=== PATIENT | female | born 1945 | race Caucasian/White ===

== ENCOUNTER 2023-09-03 15:15 | Inpatient (IN) | payer MEDICARE, SELFPAY ==
[2023-09-03 11:28] VITALS: BP 164/98
[2023-09-03 12:03] VITALS: BMI 30.8
[2023-09-03 12:16] LABS: % Basophils 0.3 % (0-2); % Eosinophils 0.4 % (0-6); % Immature Granulocytes 0.3 % (0-0.5); % Lymphocytes 7.2 % (20.5-51.1); % Monocytes 4.8 % (1.7-9.3); Absolute Lymphocytes 0.7 10^3/uL (1.2-3.4); Absolute Monocytes 0.5 10^3/uL (0.1-0.6); Absolute Neutrophils 8.7 10^3/uL (1.4-6.5); Hematocrit 38.5 % (37.0-47.0); Hemoglobin 12.8 g/dL (12.0-16.0); Mean Corp Hgb Conc. 33.2 g/dL (33.0-37.0); Mean Corpuscular Hgb 30.6 pg (27.0-31.0); Mean Corpuscular Volume 92.1 fL (81.0-99.0); Mean Platelet Volume 11.2 fL (7.4-10.4); Nucleated Red Blood Cells % 0 %; Platelet Count 272 10^3/uL (130-400); Red Blood Cell Count 4.18 10^6/uL (4.20-5.40); Red Cell Dist. Width 13.2 % (11.5-14.5)
[2023-09-03 12:29] LABS: ALT (SGPT) 36 U/L (0-35); AST (SGOT) 37 U/L (14-36); Alkaline Phosphatase 91 U/L (38-126); Blood Urea Nitrogen 17 mg/dl (7-17); Calcium 9.2 mg/dl (8.4-10.2); Carbon Dioxide 26 mmol/L (22-30); Chloride 107 mmol/L (98-107); Estimated Creatinine Clearance 69 ml/min; Glucose 95 mg/dl (70-99); Potassium 4.5 mmol/L (3.5-5.1); Sodium 137 mmol/L (135-145); Total Bilirubin 0.7 mg/dl (0.2-1.3); Total Protein 6.8 g/dl (6.3-8.2); eGFR > 60.00
--- NOTE | 2023-09-03 12:38 | ED.GENMED ---
History of Present Illness
General
Chief Complaint: Breathing Problem
Source: patient
Exam Limitations: none
Time Seen by Provider: 09/03/23 11:46
Nursing documentation reviewed up to this point in time: agreed with
Travel History
Have you had any contact with someone who has COVID-19?: No
Do you have any symptoms of coronavirus? Fever > 100 degrees, chills, cough, shortness of breath, sore throat, loss of taste or smell, muscle aches, or headache?: No
History of Present Illness
History of Present Illness:
77-year-old female long-term smoker quit 2 days ago cough congestion shortness of breath for a week worsened recently 84% on room air placed on 3 L no history of diabetes or hypertension here she is audibly wheezing smells of smoke, tachypneic
Past History
Past History
ED Past Medical History: COPD (Never formally diagnosed)
Social History
Tobacco: Former smoker (Quit 2 days ago 30 cigarettes a day for 65 years)
Drug: None
Living: with family
Employment: Retired
Review of Systems
Review of Systems
All Other Systems: Not applicable
Constitutional: Denies fever or fatigue
Respiratory: Reports cough and trouble breathing
Musculoskeletal: Reports no symptoms
Neurological: Reports no symptoms
Endocrine: Reports no symptoms
Phy Exam
Physical Exam
Physical Exam:
Physical Exam
General: Tachypneic audibly wheezing smells of cigarette smoke
Neck: No jaundice
Heart: Tachycardic
Lungs: Wheeze and rhonchi
Abdomen: Nontender
Neuro: alert and oriented. no focal neurological deficits
Skin: no rash
Psychiatric: cooperative
Extremities: no edema.
Scores
Heart Failure Risk
Heart Failure Risk Score: Not Applicable
Course
Orders/Labs/Results
Orders:
Orders
09/03/23 11:35
Electrocardiogram (*1) Urgent
Reason for Study: Shortness of Breath
EKG- Treatment ONCE
09/03/23 12:07
Complete Blood Count/With Diff Urgent
Comprehensive Metabolic Panel Urgent
NT-proBNP Urgent
Troponin I Urgent
09/03/23 12:34
IV Insert/Care/Rem.- Treatment PRN
Arterial Blood Gas Urgent
%Oxygen/Room Air: 4
Albuterol Sulfate [Ventolin Nebules] 7.5 mg INH R NOW STA
Dexamethasone Sod Phosphate [Decadron] 20 mg IV NOW STA
CR Chest Portable - 1 View Urgent
Comment:
Reason For Exam: copd
Reason Study Needs to be Portable: Patient Unstable
09/03/23 12:42
ABG [Arterial Blood Gas] Urgent
%Oxygen/Room Air: 3
COVID-19 Antigen Urgent
Source: Nasal Swab
Influenza A+B Rapid Molecular Urgent
ABDELRAHMAN Source: Nasal Swab
Specimen Description:
Abnormal Lab Results
09/03/23
12:07
RBC 4.18 L 10^6/uL
(4.20-5.40)
MPV 11.2 H fL
(7.4-10.4)
Absolute Neuts (auto) 8.7 H 10^3/uL
(1.4-6.5)
Absolute Lymphs (auto) 0.7 L 10^3/uL
(1.2-3.4)
Neutrophils % 87.0 H %
(42.2-75.2)
Lymphocytes % 7.2 L %
(20.5-51.1)
AST 37 H U/L
(14-36)
ALT 36 H U/L
(0-35)
09/03/23 12:07
09/03/23 12:07
Vital Signs
Initial and Last Documented VS:
Initial Vital Signs
Temp Pulse Resp BP Pulse Ox
97.8 F 102 26 164/98 95
09/03/23 11:28 09/03/23 11:28 09/03/23 11:28 09/03/23 11:28 09/03/23 11:28
Last Documented Vital Signs
Temp Pulse Resp BP Pulse Ox
97.8 F 78 20 164/98 95
09/03/23 11:28 09/03/23 12:15 09/03/23 12:15 09/03/23 11:28 09/03/23 12:15
MDM/Problems Addressed
Differential Diagnosis Includes:
COPD pneumonia asthma bronchitis doubt PE
MDM/Problems Addressed:
Shortness of breath
Chronic conditions affecting care:
Smoker
Chronic conditions affecting care: COPD
Acute Exacerbation and/or Progression of Chronic Illness:
Smoker
Acute Exacerbation and/or Progression of Chronic Illness: COPD
*Radiology
Radiology exam reviewed: preliminary read by ED provider
*Pulse Oximetry
Patient hypoxic: yes
*EKG
Interpreted by ED Provider?: Yes
Interpretation: abnormal
Comparison EKG: no comparison EKG present
Heart Rate: 118
Rate: tachycardiac
Rhythm: sinus
Ischemia: non-specific ST changes
*[employer] Interpretation
Rate: tachycardiac
Interpretation: abnormal
Heart Rate: 118
*Critical Care Note
Total Time (30-74mins, 75-104mins- exclusive of procedures): 30
Data Reviewed
Source: patient
Update Note
Update Note:
Patient with likely COPD by history and physical plan will be nebs steroids chest x-ray viral swabs patient requiring oxygen, will likely require admission will also check ABG
ED Attending Note
-
Portions of this chart may have been created with voice recognition software.� Occasional wrong word or��sound alike� substitutions may have occurred due to the inherent limitations of voice recognition software.
Discharge Plan
Departure
Patient Disposition: Admit
Date of Disposition: 09/03/23
Time of Disposition: 13:00
Admit to: Med/Surg
Presentation/result/management discussed w/ accepting MD/DO: Hospitalist
Patient with high blood pressure during this ER visit?: No
Condition: Fair
Covid-19: Not Applicable
Discharge Problem:
COPD exacerbation
Interventions
Interventions:
*Risk Screen - Suicide Last Done: 09/03/23 12:28
*General Assessment Last Done: 09/03/23 12:28
*Neglect/Abuse Screening Last Done: 09/03/23 12:28
*ED COVID-19 Vaccine History Last Done: 09/03/23 12:28
ED- Cardiac Assessment Last Done: 09/03/23 12:28
ED- Pulmonary Assessment Last Done: 09/03/23 12:28
[2023-09-03 12:41] LABS: NT-proBNP 4080 pg/ml; Troponin I 0.018 ng/ml
[2023-09-03] MEDS: VENTOLIN NEBULES 7.5 MG INH (12:50)
[2023-09-03] MEDS: DECADRON 20 MG IV (12:50)
[2023-09-03 13:15] LABS: B.E. 1.8 mmol/L; HCO3 27.2 mmol/L (21-28); O2 Saturation % 94.3 % (94-98); PCO2 45 mmHg (32-35); PO2 65 mmHg (83-108); pH 7.39 (7.35-7.45)
[2023-09-03 13:32] LABS: COVID-19 Antigen Negative (Negative)
[2023-09-03 14:02] VITALS: BP 170/69
[2023-09-03] MEDS: ROCEPHIN 1000 MG IV (14:21)
--- NOTE | 2023-09-03 14:29 | HPS.HSE ---
Family Physician
-
Family Physician: Justyn Lin
Chief Complaint
-
Shortness of breath
History of Present Illness
Patient is 77 years old female with history of COPD, asthma, current smoker, vitamin D deficiency, vitamin B12 deficiency, hypertension not on any medications, presented to the hospital with cough and shortness of breath. Patient has been having
dry cough for the last 1 week associated with shortness of breath and wheezing that has been progressively getting worse. Denies fevers or chills. Denies nausea vomiting or diarrhea. Denies sick contacts. She does not use oxygen at home. She
was found to have tachypnea and increased work of breathing along with 84% on room air and she was placed on 3 L of supplemental oxygen. She had been hypertensive in the past and she had been taken off medications due to increased cough. In the ER
chest x-ray showed bibasilar opacities pneumonia versus atelectasis and tiny bilateral pleural effusions. She was referred to hospitalist for further evaluation.
Medical History
Past Medical History
Past Medical History: Reports Other (history of COPD, asthma, current smoker, vitamin D deficiency, vitamin B12 deficiency, hypertension not on any medications)
Past Surgical History: Reports None
Social History
Tobacco: Smoker
Alcohol: None
Drug: None
Family History
Family History: Not pertinent
Allergies / Home Medications
Allergies reflects when Allergies were last updated in [facility].
Home Medications with original date entered in [facility]
Allergy/Medication List:
Allergies
Allergy/AdvReac Type Severity Reaction Status Date / Time
No Known Allergies Allergy Unverified 09/03/23 11:27
Home Medications
Ex-Lax 2 tab PO DAILYPRN PRN constipation 09/03/23
Saffron Supplement 1 tab PO DAILY 09/03/23
albuterol sulfate 90 mcg/actuation aerosol inhaler 1 puff inhalation R Q4HPRN PRN sob 09/03/23
aspirin-caffeine 500 mg-32.5 mg tablet 2 tab PO .MIDDLE OF NIGHT PRN mild pain 09/03/23
aspirin-caffeine 500 mg-32.5 mg tablet 2 tab PO BID 09/03/23
cholecalciferol (vitamin D3) 1 tab PO DAILY 09/03/23
cyanocobalamin (vitamin B-12) 1 tab PO DAILY 09/03/23
Review of Systems
-
A 12 point ROS was completed and negative except as noted: Yes
Physical Exam
Vital Signs
Vital Signs
Temp Pulse Resp BP Pulse Ox
97.8 F 83 22 164/98 94
09/03/23 11:28 09/03/23 13:30 09/03/23 13:30 09/03/23 11:28 09/03/23 13:30
Physical exam:
General: Acutely ill
HEENT: Normocephalic, Atraumatic and Moist Mucous Membranes
Respiratory: Decreased breath sounds bilateral. Bilateral wheezing. No crackles.
Cardiac: Regular Rhythm and S1/S2
GI: Soft, Nontender and Nondistended
Musculoskeletal: No Clubbing, No Cyanosis and No Edema
Neuro: Awake, Alert and Oriented
Psych: Calm
Physical Exam
General: Other
Laboratory Results
-
09/03/23 12:07
09/03/23 12:07
Laboratory Results
pH 7.39 (7.35-7.45) 09/03/23 13:02
pCO2 45 mmHg (32-35) H 09/03/23 13:02
pO2 65 mmHg (83-108) L 09/03/23 13:02
HCO3 27.2 mmol/L (21-28) 09/03/23 13:02
Total Bilirubin 0.7 mg/dl (0.2-1.3) 09/03/23 12:07
AST 37 U/L (14-36) H 09/03/23 12:07
ALT 36 U/L (0-35) H 09/03/23 12:07
Alkaline Phosphatase 91 U/L (38-126) 09/03/23 12:07
Troponin I 0.018 ng/ml 09/03/23 12:07
Impression/Plan
-
IMPRESSION:
Patient 77 years old female current smoker and past medical history of COPD came to the hospital cough and shortness of breath and found to be in acute COPD exacerbation. Possible pneumonia versus bronchitis.
Impression:
Acute COPD exacerbation
Acute hypoxic respiratory failure due to COPD
Pneumonia
Conditions prior to presentation:
COPD/asthma
Hypertension, not on any medications.
PLAN:
IV steroids, dexamethasone 4 mg every 6 hours
Bronchodilators, DuoNebs and budesonide
Oxygen supplementation
Antibiotics, IV Rocephin and oral azithromycin.
Monitor respiratory status closely
Will use IV hydralazine as needed. Discussed with patient if she needs multiple doses we might need to start her on oral antihypertensives.
PT eval
DVT prophylaxis with Lovenox 40 subcutaneous daily
CODE STATUS DNR, confirmed with patient
Will give further commendations based on clinical course
[2023-09-03 15:00] VITALS: BP 181/80
[2023-09-03] MEDS: APRESOLINE 5 MG IV (15:50)
[2023-09-03] MEDS: ZITHROMAX 500 MG PO (15:50)
--- NOTE | 2023-09-03 16:30 | PTCARENOTE ---
2/2- Patient transferred and oriented to unit without issue. AAOX3, on 2L O2, TREVIZO, Productive cough with white/yellow thin phlegm. Skin=warm/pink/dry/Intact. Patient denies any needs at this time.
[2023-09-03 17:34] VITALS: BP 175/91
[2023-09-03] MEDS: DUONEB INH (17:44)
[2023-09-03] MEDS: VITAMIN B-12 1000 MCG PO (18:29)
[2023-09-03] MEDS: VITAMIN D3 (cholecalciferol) 50 MCG PO (18:29)
[2023-09-03] MEDS: DECADRON 4 MG IV ×2 (18:30→23:26)
[2023-09-03 19:15] VITALS: BP 177/72
[2023-09-03] MEDS: PULMICORT 0.5 MG INH (19:58)
[2023-09-03] MEDS: DUONEB 3 ML INH (19:58)
[2023-09-03] MEDS: MUCINEX 600 MG PO (20:35)
[2023-09-03] MEDS: APRESOLINE 10 MG IV (20:36)
[2023-09-03] MEDS: FLUSH (NSS) 1 FLUSH IV ×2 (20:41→23:26)
[2023-09-03 23:00] VITALS: BP 112/81
[2023-09-03] MEDS: ULTRAM 50 MG PO (23:25)
[2023-09-04] MEDS: DECADRON 4 MG IV ×3 (06:01→18:38)
[2023-09-04] MEDS: FLUSH (NSS) 1 FLUSH IV (06:01)
[2023-09-04 07:25] LABS: % Basophils 0.1 % (0-2); % Immature Granulocytes 0.3 % (0-0.5); % Lymphocytes 9.3 % (20.5-51.1); % Monocytes 1.8 % (1.7-9.3); % Neutrophils 88.5 % (42.2-75.2); Absolute Lymphocytes 0.7 10^3/uL (1.2-3.4); Absolute Monocytes 0.1 10^3/uL (0.1-0.6); Absolute Neutrophils 6.5 10^3/uL (1.4-6.5); Hematocrit 35.3 % (37.0-47.0); Hemoglobin 11.7 g/dL (12.0-16.0); Mean Corp Hgb Conc. 33.1 g/dL (33.0-37.0); Mean Corpuscular Hgb 31.2 pg (27.0-31.0); Mean Corpuscular Volume 94.1 fL (81.0-99.0); Mean Platelet Volume 11.8 fL (7.4-10.4); Nucleated Red Blood Cells % 0 %; Platelet Count 234 10^3/uL (130-400); Red Blood Cell Count 3.75 10^6/uL (4.20-5.40); Red Cell Dist. Width 13.3 % (11.5-14.5); White Blood Cell Count 7.3 10^3/uL (4.8-10.8)
[2023-09-04] MEDS: DUONEB 3 ML INH ×4 (07:27→20:13)
[2023-09-04] MEDS: PULMICORT 0.5 MG INH ×2 (07:28→20:13)
[2023-09-04 07:45] VITALS: BP 161/69
[2023-09-04 07:46] LABS: Blood Urea Nitrogen 22 mg/dl (7-17); Calcium 9.4 mg/dl (8.4-10.2); Carbon Dioxide 28 mmol/L (22-30); Chloride 107 mmol/L (98-107); Estimated Creatinine Clearance 68 ml/min; Glucose 130 mg/dl (70-99); Potassium 4.3 mmol/L (3.5-5.1); Sodium 136 mmol/L (135-145); eGFR > 60.00
--- NOTE | 2023-09-04 07:58 | W.PN.HOSP.TC ---
Today's Communication/Plan
-
Continue IV antibiotics, IV steroids, bronchodilators. Start antihypertensives.
Assessment / Plan
Assessment / Plan
Physical exam:
General: Acutely ill
HEENT: Normocephalic, Atraumatic and Moist Mucous Membranes
Respiratory: Decreased breath sounds bilateral.� Bilateral wheezing.� No crackles.
Cardiac: Regular Rhythm and S1/S2
GI: Soft, Nontender and Nondistended
Musculoskeletal: No Clubbing, No Cyanosis and No Edema
Neuro: Awake, Alert and Oriented
Psych: Calm
A/P:
Impression:
Acute COPD exacerbation
Acute hypoxic respiratory failure due to COPD
Pneumonia
Conditions prior to presentation:
COPD/asthma
Hypertension, not on any medications.
PLAN:
Continue IV steroids, dexamethasone 4 mg every 6 hours
Bronchodilators, DuoNebs and budesonide
Oxygen supplementation
Cont antibiotics, IV Rocephin and oral azithromycin.
Assess home oxygen needs prior to discharge
Monitor respiratory status closely
Start amlodipine 5 mg p.o. daily
Will cont use IV hydralazine as needed.�
PT eval
DVT prophylaxis with Lovenox 40 subcutaneous daily
Discussed with daughter over the phone at bedside today on 09/04. Sleep testing as outpatient for CPAP eval. Home oxygen needs eval prior to discharge.
CODE STATUS DNR
Anticipated Discharge: 24 - 48 hours
Subjective/Interval History
-
Date of Service: September 04, 2023
Patient feels better today, less shortness of breath and coughing. Afebrile
Objective Data
-
Labs:
Laboratory Results
09/04/23
06:28
WBC 7.3
Hgb 11.7 L
Hct 35.3 L
Plt Count 234
Sodium 136
Potassium 4.3
Chloride 107
Carbon Dioxide 28
BUN 22 H
Creatinine 0.6
Glucose 130 H
Calcium 9.4
Vital Signs:
Vital Signs
Temp Pulse Resp BP Pulse Ox
97.6 F 103 18 161/69 93
09/04/23 07:45 09/04/23 07:45 09/04/23 07:45 09/04/23 07:45 09/04/23 07:45
[2023-09-04] MEDS: MUCINEX 600 MG PO ×2 (09:11→20:07)
[2023-09-04] MEDS: VITAMIN B-12 1000 MCG PO (09:11)
[2023-09-04] MEDS: VITAMIN D3 (cholecalciferol) 50 MCG PO (09:11)
[2023-09-04] MEDS: NORVASC 5 MG PO (09:11)
[2023-09-04 10:49] VITALS: BP 175/84; PULSE 104; O2SAT 95
[2023-09-04] MEDS: STERILE WATER FOR INJECTION 10 ML IV (13:43)
[2023-09-04] MEDS: NON-FORMULARY ITEM 1 UNIT PO ×2 (13:44→21:43)
[2023-09-04] MEDS: ROCEPHIN 1000 MG IV (13:44)
[2023-09-04 15:37] VITALS: BP 143/74
[2023-09-04] MEDS: ZITHROMAX 250 MG PO (16:38)
[2023-09-04 23:50] VITALS: BP 150/72
[2023-09-05] MEDS: FLUSH (NSS) 1 FLUSH IV ×2 (00:31→05:20)
[2023-09-05] MEDS: DECADRON 4 MG IV ×2 (00:31→05:20)
[2023-09-05 07:08] VITALS: BP 123/84
[2023-09-05] MEDS: PULMICORT 0.5 MG INH ×2 (07:53→20:00)
[2023-09-05] MEDS: DUONEB 3 ML INH ×4 (07:53→20:00)
[2023-09-05] MEDS: VITAMIN D3 (cholecalciferol) 50 MCG PO (08:48)
[2023-09-05] MEDS: VITAMIN B-12 1000 MCG PO (08:48)
[2023-09-05] MEDS: MUCINEX 600 MG PO ×2 (08:48→19:54)
[2023-09-05] MEDS: NORVASC 5 MG PO (08:48)
--- NOTE | 2023-09-05 08:48 | W.PN.HOSP.TC ---
Today's Communication/Plan
-
Continue steroids, bronchodilators. Continue antihypertensive. Discharge planning in progress
Assessment / Plan
Assessment / Plan
Physical exam:
General: Acutely ill
HEENT: Normocephalic, Atraumatic and Moist Mucous Membranes
Respiratory: Decreased breath sounds bilateral.� Bilateral wheezing.� No crackles.
Cardiac: Regular Rhythm and S1/S2
GI: Soft, Nontender and Nondistended
Musculoskeletal: No Clubbing, No Cyanosis and No Edema
Neuro: Awake, Alert and Oriented
Psych: Calm
A/P:
Impression:
Acute COPD exacerbation
Acute hypoxic respiratory failure due to COPD
Pneumonia
Conditions prior to presentation:
COPD/asthma
Hypertension, not on any medications.
PLAN:
Change IV steroids today to oral steroid
Bronchodilators, DuoNebs and budesonide
Oxygen supplementation
Cont antibiotics, IV Rocephin--> plan to switch to oral tomorrow and continue oral azithromycin.
Monitor respiratory status closely
Cont amlodipine 5 mg p.o. daily
Will cont use IV hydralazine as needed.�
PT eval
DVT prophylaxis with Lovenox 40 subcutaneous daily
Discussed with daughter over the phone at bedside yesterday. Sleep testing as outpatient for CPAP eval.
Assess home oxygen tomorrow
CODE STATUS DNR
Anticipated Discharge: Within 24 hours
Subjective/Interval History
-
Date of Service: September 05, 2023
Patient feels better overall, less shortness of breath, less cough. Does feel little 'shaky'. Blood pressure improving.
Objective Data
-
Vital Signs:
Vital Signs
Temp Pulse Resp BP Pulse Ox
98.1 F 82 20 123/84 98
09/05/23 07:08 09/05/23 07:08 09/05/23 07:08 09/05/23 07:08 09/05/23 07:08
I&O
09/04/23 09/05/23 09/06/23
06:59 06:59 06:59
Intake Total 1620 / 1620
Balance 1620 / 1620
Review of Systems
-
All other systems: Reviewed and negative
[2023-09-05] MEDS: DELTASONE 40 MG PO (12:24)
[2023-09-05] MEDS: PROTONIX 40 MG PO (12:24)
[2023-09-05] MEDS: STERILE WATER FOR INJECTION 10 ML IV (14:57)
[2023-09-05] MEDS: ROCEPHIN 1000 MG IV (14:57)
[2023-09-05 15:36] VITALS: BP 130/88
[2023-09-05] MEDS: ZITHROMAX 250 MG PO (15:54)
--- NOTE | 2023-09-05 16:27 | CM ---
Patient seen bedside.
Patient lives alone in a 1 story home.
Patient Independent prior to admission.
Patient has a cane but only uses when she is out.
Patient drives.
Patient has not had VN or skilled rehab in the past.
PT recommending VN.
Options reviewed.
Patient chose [facility].
Patient requesting home help with cleaning and cooking, CM will provide information. '
Patient with possible home oxygen needs.
PCP: Dr Lin
Plan: home with [facility], referral placed.
[2023-09-05] MEDS: NON-FORMULARY ITEM 2 UNIT PO (21:58)
[2023-09-05 23:59] VITALS: BP 149/70
[2023-09-06] MEDS: PULMICORT 0.5 MG INH (07:25)
[2023-09-06] MEDS: DUONEB 3 ML INH ×2 (07:25→11:16)
--- NOTE | 2023-09-06 07:48 | W.PN.HOSP.TC ---
Addendum entered and electronically signed by Watson Dutton MD 09/06/23 12:40:
Patient is in need of oxygen at 2 liters/minute via nasal cannula continuously due to pulse oximetry of 96% on room air at rest but pulse oximetry on ambulation 84%. Pulse oximetry went up to 92% with 2 L of oxygen with ambulation. Oxygen will
help to improve hypoxemia. Patient is mobile within the home. DuoNeb therapy has been tried and is ineffective in treating hypoxemia related symptoms. Oxygen is needed to improve symptoms.
Original Note:
Today's Communication/Plan
-
cont current mgmt. Discharge planning today
Assessment / Plan
Assessment / Plan
Physical exam:
General: Acutely ill
HEENT: Normocephalic, Atraumatic and Moist Mucous Membranes
Respiratory: Decreased breath sounds bilateral.� Bilateral wheezing.� No crackles.
Cardiac: Regular Rhythm and S1/S2
GI: Soft, Nontender and Nondistended
Musculoskeletal: No Clubbing, No Cyanosis and No Edema
Neuro: Awake, Alert and Oriented
Psych: Calm
A/P:
Impression:
Acute COPD exacerbation
Acute hypoxic respiratory failure due to COPD
Pneumonia
Conditions prior to presentation:
COPD/asthma
Hypertension, not on any medications.
PLAN:
Change IV steroids today to oral steroid
Bronchodilators, DuoNebs and budesonide
Oxygen supplementation
Cont antibiotics, IV Rocephin--> plan to switch to oral today and continue oral azithromycin.
Monitor respiratory status closely
Cont amlodipine 5 mg p.o. daily
Will cont use IV hydralazine as needed.�
PT eval
DVT prophylaxis with Lovenox 40 subcutaneous daily
Discussed with daughter over the phone. Sleep testing as outpatient for CPAP eval.
Assess home oxygen today-appears she might not need
CODE STATUS DNR
Anticipated Discharge: Today
Subjective/Interval History
-
Date of Service: September 06, 2023
Patient denies any chest pain or shortness of breath. No nausea vomiting or diarrhea. Afebrile
Objective Data
-
Vital Signs:
Vital Signs
Temp Pulse Resp BP Pulse Ox
98.0 F 92 15 149/70 98
09/05/23 23:59 09/06/23 07:36 09/06/23 07:36 09/05/23 23:59 09/06/23 07:36
I&O
09/05/23 09/06/23 09/07/23
06:59 06:59 06:59
Intake Total 1620 / 1620 1080 / 1080
Balance 1620 / 1620 1080 / 1080
[2023-09-06 07:55] VITALS: BP 141/81
[2023-09-06] MEDS: MUCINEX 600 MG PO (08:25)
[2023-09-06] MEDS: NON-FORMULARY ITEM 2 UNIT PO (08:25)
[2023-09-06] MEDS: DELTASONE 40 MG PO (08:25)
[2023-09-06] MEDS: OMNICEF 300 MG PO (08:26)
[2023-09-06] MEDS: NORVASC 5 MG PO (08:26)
[2023-09-06] MEDS: VITAMIN D3 (cholecalciferol) 50 MCG PO (08:26)
[2023-09-06] MEDS: VITAMIN B-12 1000 MCG PO (08:27)
--- NOTE | 2023-09-06 10:36 | W.DCSUMMARY ---
Discharge Summary
Discharge Data
Date of Admission: 09/03/23
Date of Discharge: 09/06/23
-
Pending Results: No
Hospital Course
77 years old female with history of COPD presented to the hospital shortness of breath and found to be in COPD exacerbation. She was also hypoxic and was found to have bilateral pneumonia. She was treated appropriately with IV antibiotics, IV
steroids, oxygen supplementation. Patient improved substantially and she was able to come off oxygen. We did home oxygen assessment and she did qualify for home oxygen since she requires oxygen ambulation. Will switch her antibiotics to oral and
switched her steroids to oral to complete a tapering course of steroids as outpatient. Patient was noticed to be hypertensive. We started her on low-dose of amlodipine and she responded well. Her blood pressure has been stable. Patient is back
to her baseline at this point. She will be discharged in stable condition today.
Discharge duration: 35 minutes
Discharge Plan
-
Patient Disposition: Home (Routine Discharge)
Discharge Diagnosis/Procedures: Chronic obstructive pulmonary disease exacerbation. Acute hypoxic respiratory failure. Pneumonia. Hypertension
Diet: Low Cholesterol
Activity: As tolerated
Driving Restrictions: As prior to admission
Blood Work: Please PCP to order CBC, BMP within 1 week
Referrals:
Claudy Carrasquillo MD [Active] - in two to four weeks
Justyn Lin DO [Family Provider] - in less than 1 week
Prescriptions:
New
azithromycin 250 mg Tablet
250 mg PO DAILY@1600 1 Days Qty: 1 0RF
amlodipine 5 mg Tablet
5 mg PO DAILY 30 Days Qty: 30 0RF
prednisone 10 mg Tablet
See Rx Instructions .ROUTE .COMPLEX Qty: 30 0RF
Rx Instructions:
Take By Mouth:
40 mg daily x3 days, 30 mg daily x3 days,
20 mg daily x3 days, 10 mg daily x3 days.
cefdinir 300 mg Capsule
300 mg PO Q12 5 Days Qty: 10 0RF
guaifenesin 200 mg/5 mL liquid
200 mg PO Q4H PRN (Reason: Cough) Qty: 118 0RF
Continued
albuterol sulfate 90 mcg/actuation Hfa Aerosol Inhaler
1 puff INHALATION R Q4HPRN PRN (Reason: sob)
aspirin-caffeine 500-32.5 mg Tablet
2 tab PO BID
Patient Comments:
09/03/2023, pt. states that sometimes she will take an additional dose of this med. in the middle of the night.
aspirin-caffeine 500-32.5 mg Tablet
2 tab PO .MIDDLE OF NIGHT PRN (Reason: mild pain)
Saffron Supplement
1 tab PO DAILY
cholecalciferol (vitamin D3)
1 tab PO DAILY
cyanocobalamin (vitamin B-12)
1 tab PO DAILY
Ex-Lax
2 tab PO DAILYPRN PRN (Reason: constipation)
Discharge Orders:
Discharge Patient (As Directed); Ordered 09/06/23
Ordered By: Watson Dutton
Discharge Date and Time
Discharge Date/Time: 09/06/23 15:24
--- NOTE | 2023-09-06 10:47 | CM ---
Addendum entered by Charlee Caban 09/06/23 14:56:
Awaiting [employer] to deliver home O2 and IMM signed and placed on chart. Patient daughter updated and CM provided [employer] and phone numbers for [facility]
Original Note:
Patient for discharge home today. Patient for [facility] please fax to [phone]. CM will review IMM with patient and plan is home with no needs.
Plan; home with [facility]
[2023-09-06] MEDS: DUONEB INH (15:18)
== END 2023-09-06 15:24 | disposition home or self-care (01) | DRG 190 ==
LOC: 4 WEST ACU 15:15
PROVIDERS: ADMITTING PHYSICIAN Hospitalist; EMERGENCY PHYSICIAN Emergency Medicine; FAMILY PHYSICIAN Family Medicine
DX: J44.1 Chronic obstructive pulmonary disease with (acute) exacerbation (principal); J18.9 Pneumonia, unspecified organism; J96.01 Acute respiratory failure with hypoxia; J44.0 Chronic obstructive pulmonary disease with (acute) lower respiratory infection; I10 Essential (primary) hypertension; Z66 Do not resuscitate
CPT/HCPCS: 71045; 80048; 80053; 82805; 83880; 84484; 85025; 87040; 87502; 87811; 93005; 94640; 94644; 96374; 96375; 97162; 99291; 99406

== ENCOUNTER → 2023-10-09 10:02 | Outpatient (REF) | payer MEDICARE, SELFPAY | LOC: RCS 10:02 | PROVIDERS: ATTENDING PHYSICIAN Internal Medicine Critical Care Medicine; FAMILY PHYSICIAN Family Medicine | DX: J44.9 Chronic obstructive pulmonary disease, unspecified (principal); R06.09 Other forms of dyspnea; I10 Essential (primary) hypertension; J15.9 Unspecified bacterial pneumonia | CPT/HCPCS: 71046; 93306 ==

== ENCOUNTER → 2023-10-11 | Outpatient (REF) | payer MEDICARE, SELFPAY | LOC: DHSLP | PROVIDERS: ATTENDING PHYSICIAN Internal Medicine Critical Care Medicine; FAMILY PHYSICIAN Family Medicine | DX: G47.30 Sleep apnea, unspecified (principal); R06.83 Snoring | CPT/HCPCS: 95800 ==

== ENCOUNTER 2023-10-20 22:41 | Inpatient (IN) | payer MEDICARE, SELFPAY ==
[2023-10-20 18:57] VITALS: BP 208/130; BMI 29.9
[2023-10-20 19:00] VITALS: BP 216/124
[2023-10-20 19:17] VITALS: BP 176/89
[2023-10-20 19:40] LABS: % Basophils 0.3 % (0-2); % Eosinophils 1.4 % (0-6); % Immature Granulocytes 0.2 % (0-0.5); % Lymphocytes 10.5 % (20.5-51.1); % Monocytes 5.8 % (1.7-9.3); % Neutrophils 81.8 % (42.2-75.2); Absolute Eosinophils 0.1 10^3/uL (0-0.7); Absolute Monocytes 0.6 10^3/uL (0.1-0.6); Absolute Neutrophils 7.7 10^3/uL (1.4-6.5); Hematocrit 40.5 % (37.0-47.0); Hemoglobin 12.9 g/dL (12.0-16.0); Mean Corp Hgb Conc. 31.9 g/dL (33.0-37.0); Mean Corpuscular Hgb 29.7 pg (27.0-31.0); Mean Corpuscular Volume 93.3 fL (81.0-99.0); Mean Platelet Volume 11.1 fL (7.4-10.4); Nucleated Red Blood Cells % 0 %; Platelet Count 254 10^3/uL (130-400); Red Blood Cell Count 4.34 10^6/uL (4.20-5.40); Red Cell Dist. Width 13.9 % (11.5-14.5); White Blood Cell Count 9.4 10^3/uL (4.8-10.8)
[2023-10-20] MEDS: DUONEB 3 ML INH (19:45)
[2023-10-20 19:51] LABS: ALT (SGPT) 24 U/L (0-35); AST (SGOT) 30 U/L (14-36); Albumin 4.2 g/dl (3.5-5.0); Alkaline Phosphatase 76 U/L (38-126); Blood Urea Nitrogen 27 mg/dl (7-17); Calcium 9.5 mg/dl (8.4-10.2); Carbon Dioxide 23 mmol/L (22-30); Chloride 107 mmol/L (98-107); Estimated Creatinine Clearance 71 ml/min; Glucose 116 mg/dl (70-99); Sodium 139 mmol/L (135-145); Total Bilirubin 0.4 mg/dl (0.2-1.3); eGFR > 60.00
[2023-10-20 19:57] LABS: NT-proBNP 4470 pg/ml; Troponin I 0.017 ng/ml
[2023-10-20 20:02] VITALS: BP 159/96
--- NOTE | 2023-10-20 20:15 | ED.GENMED ---
History of Present Illness
<Екатерина Carter PA-C - Last Filed: 10/20/23 21:53>
General
Chief Complaint: Breathing Problem
Source: patient
Exam Limitations: none
Time Seen by Provider: 10/20/23 19:52
Nursing documentation reviewed up to this point in time: agreed with
Travel History
Have you had any contact with someone who has COVID-19?: No
Do you have any symptoms of coronavirus? Fever > 100 degrees, chills, cough, shortness of breath, sore throat, loss of taste or smell, muscle aches, or headache?: No
History of Present Illness
History of Present Illness:
pt is a 77 y/o F with ho COPD
has home o2 as needed
htn, hld
no chf history
has had ongoing worsening dyspnea, worse at night, needs extra pillows. she sees pulm and is doing a home sleep study now but the thuoghts are that pt may actually have CHF
pt has not seen cards or been on lasix
she was admitted here beginning of september for COPD exacerbation, was on abx and steroids and has not fully improved
she has been wearing the o2 more than normal, was initially just using at night
but now is wearing it throughout the day
today around 230 pm she wwalked to her car (without o2, she doesn't have portable o2) and got in the car to go somewhere and became so sob she couldn't catch her breath
she called a family friend to come over, pt had made her way back t her house and put her o2 on and her pulse ox was 92% about 15 minutes after this sudden worsening sob episode
she doesn't have chest pain, cough
her legs have been swollen as well
Past History
<Екатерина Carter PA-C - Last Filed: 10/20/23 21:53>
Past History
ED Past Medical History: Asthma, COPD (Never formally diagnosed), HTN and Hypercholesterolemia
Social History
Tobacco: Former smoker (Quit 2 days ago 30 cigarettes a day for 65 years)
Drug: None
Living: with family
Employment: Retired
Review of Systems
<Екатерина Carter PA-C - Last Filed: 10/20/23 21:53>
Review of Systems
Allergies reviewed?: Yes
All Other Systems: Not applicable
Phy Exam
<Екатерина Carter PA-C - Last Filed: 10/20/23 21:53>
Physical Exam
Physical Exam:
GENERAL: Alert , mild tachypneic
EYE: pupils equal and reactive
NECK: Supple
ENT: o/p clr, mmm.
CARDIAC: Regular rate and rhythm .
LUNGS: mildly tachypneic, diminished, end exp faint wheezes
crackles
ABDOMEN: Soft, without focal tenderness, no r/g, no cvat, normal bowel sounds
NEUROLOGICAL: Alert and oriented, no focal neuro deficits
SKIN: Warm and dry, skin intact.
MUSCULOSKELETAL: No edema, well perfused. neg sha's sign
PSYCH: Normal and appropriate interaction.
Scores
<Екатерина Carter PA-C - Last Filed: 10/20/23 21:53>
Heart Failure Risk
Heart Failure Risk Score: Not Applicable
Course
<Екатерина Carter PA-C - Last Filed: 10/20/23 21:53>
Orders/Labs/Results
Orders:
Orders
10/20/23 19:17
Electrocardiogram (*1) Urgent
Reason for Study: Other
Other Reason for Exam: Respiratory Distress
Cardiac Monitoring- Treatment ONCE
EKG- Treatment ONCE
IV Insert/Care/Rem.- Treatment PRN
Pulse Ox/cont/shift [RESP] Urgent
Quantity: 1
Special Instructions: continuous pulse ox
10/20/23 19:27
Complete Blood Count/With Diff Urgent
Comprehensive Metabolic Panel Urgent
NT-proBNP Urgent
Troponin I Urgent
10/20/23 19:44
Ipratropium/Albuterol Sulfate [Duoneb] 3 ml .ROUTE .STK-MED ONE
Ipratropium/Albuterol Sulfate [Duoneb] 3 ml INH R NOW ONE
10/20/23 19:59
CR Chest - 2 Views Urgent
Comment:
Reason For Exam: wheezing, sob, chf
10/20/23 20:17
D-Dimer Urgent
10/20/23 21:04
CT Chest Pe Study Urgent
Comment:
Reason For Exam: sob, tachy, elevated d dimer
Furosemide [Lasix] 40 mg IV NOW STA
10/20/23 21:06
Furosemide [Lasix] 40 mg IV NOW STA
10/20/23 22:27
Consult Cardiology [CARDIOLOGY CONSULT] Routine
Consulting Provider: Ramon Wong
Was physician already notified: No
Reason for consult: new chf
Consult Pulmonary [PULMONARY CONSULT] Routine
Consulting Provider: Saulo Hyatt
Was physician already notified: No
Reason for consult: acute ch on chroncic copd
10/20/23 22:28
Admit/Transfer Patient As Directed
Co-Sign Provider:
Level of Care: Inpatient admission
Assign to:: Telemetry
Physician / Group: lucille carreno
Diagnosis: New chf , copd exacerbation
Reason for Telemetry: Acute Heart Failure
Date to Stop Telemetry: 10/23/23
Time to Stop Telemetry: 11:00
Reason for Hospitalization: New chf , copd exacerbation
Expected length of stay greater than two midnights?: Yes
ELOS- Estimated Length of Stay in days: 3
I certify the patient meets the requirements for IP care: Yes
Code Status As Directed
Resuscitation Status: Do not resuscitate
Reached after discussion with pt or family/Healthcare POA: Yes
Based on pt advanced directive or healthcare POA form: Yes
Decision communicated with: per pt with poa and family friend at bedside
Consult Notification Routine
Specialty to Notify: Cardiology
Consult Notification Routine
Specialty to Notify: Pulmonary
10/20/23 22:29
DNR Bracelet Application ONCE
10/20/23 22:35
COVID-19 Antigen Urgent
Source: Nasal Swab
Influenza A+B Rapid Molecular Urgent
ABDELRAHMAN Source: Nasal Swab
Specimen Description:
10/20/23 23:00
Dexamethasone Sod Phosphate [Decadron] 4 mg IV Q8H
10/23/23 11:00
DC Protocol for Telemetry ONCE
Abnormal Lab Results
10/20/23 10/20/23
19:27 20:17
MCHC 31.9 L g/dL
(33.0-37.0)
MPV 11.1 H fL
(7.4-10.4)
Absolute Neuts (auto) 7.7 H 10^3/uL
(1.4-6.5)
Absolute Lymphs (auto) 1.0 L 10^3/uL
(1.2-3.4)
Neutrophils % 81.8 H %
(42.2-75.2)
Lymphocytes % 10.5 L %
(20.5-51.1)
D-Dimer 1.30 H ug/mlFEU
(0.00-0.50)
BUN 27 H mg/dl
(7-17)
Creatinine 0.5 L mg/dL
(0.6-1.0)
Glucose 116 H mg/dl
(70-99)
10/20/23 19:27
10/20/23 19:27
Vital Signs
Initial and Last Documented VS:
Initial Vital Signs
Temp Pulse Resp BP Pulse Ox
98.8 F 118 22 208/130 94
10/20/23 18:57 10/20/23 18:57 10/20/23 18:57 10/20/23 18:57 10/20/23 18:57
Last Documented Vital Signs
Temp Pulse Resp BP Pulse Ox
98.8 F 99 27 166/76 96
10/20/23 18:57 10/20/23 21:29 10/20/23 21:00 10/20/23 21:29 10/20/23 21:00
<Librado Thomas, DO - Last Filed: 10/20/23 22:39>
Orders/Labs/Results
Orders:
Orders
10/20/23 19:17
Electrocardiogram (*1) Urgent
Reason for Study: Other
Other Reason for Exam: Respiratory Distress
Cardiac Monitoring- Treatment ONCE
EKG- Treatment ONCE
IV Insert/Care/Rem.- Treatment PRN
Pulse Ox/cont/shift [RESP] Urgent
Quantity: 1
Special Instructions: continuous pulse ox
10/20/23 19:27
Complete Blood Count/With Diff Urgent
Comprehensive Metabolic Panel Urgent
NT-proBNP Urgent
Troponin I Urgent
10/20/23 19:44
Ipratropium/Albuterol Sulfate [Duoneb] 3 ml .ROUTE .STK-MED ONE
Ipratropium/Albuterol Sulfate [Duoneb] 3 ml INH R NOW ONE
10/20/23 19:59
CR Chest - 2 Views Urgent
Comment:
Reason For Exam: wheezing, sob, chf
10/20/23 20:17
D-Dimer Urgent
10/20/23 21:04
CT Chest Pe Study Urgent
Comment:
Reason For Exam: sob, tachy, elevated d dimer
Furosemide [Lasix] 40 mg IV NOW STA
10/20/23 21:06
Furosemide [Lasix] 40 mg IV NOW STA
10/20/23 22:27
Consult Cardiology [CARDIOLOGY CONSULT] Routine
Consulting Provider: Ramon Wong
Was physician already notified: No
Reason for consult: new chf
Consult Pulmonary [PULMONARY CONSULT] Routine
Consulting Provider: Saulo Hyatt
Was physician already notified: No
Reason for consult: acute ch on chroncic copd
10/20/23 22:28
Admit/Transfer Patient As Directed
Co-Sign Provider:
Level of Care: Inpatient admission
Assign to:: Telemetry
Physician / Group: lucille carreno
Diagnosis: New chf , copd exacerbation
Reason for Telemetry: Acute Heart Failure
Date to Stop Telemetry: 10/23/23
Time to Stop Telemetry: 11:00
Reason for Hospitalization: New chf , copd exacerbation
Expected length of stay greater than two midnights?: Yes
ELOS- Estimated Length of Stay in days: 3
I certify the patient meets the requirements for IP care: Yes
Code Status As Directed
Resuscitation Status: Do not resuscitate
Reached after discussion with pt or family/Healthcare POA: Yes
Based on pt advanced directive or healthcare POA form: Yes
Decision communicated with: per pt with poa and family friend at bedside
Consult Notification Routine
Specialty to Notify: Cardiology
Consult Notification Routine
Specialty to Notify: Pulmonary
10/20/23 22:29
DNR Bracelet Application ONCE
10/20/23 22:35
COVID-19 Antigen Urgent
Source: Nasal Swab
Influenza A+B Rapid Molecular Urgent
ABDELRAHMAN Source: Nasal Swab
Specimen Description:
10/20/23 23:00
Dexamethasone Sod Phosphate [Decadron] 4 mg IV Q8H
10/23/23 11:00
DC Protocol for Telemetry ONCE
Abnormal Lab Results
10/20/23 10/20/23
19:27 20:17
MCHC 31.9 L g/dL
(33.0-37.0)
MPV 11.1 H fL
(7.4-10.4)
Absolute Neuts (auto) 7.7 H 10^3/uL
(1.4-6.5)
Absolute Lymphs (auto) 1.0 L 10^3/uL
(1.2-3.4)
Neutrophils % 81.8 H %
(42.2-75.2)
Lymphocytes % 10.5 L %
(20.5-51.1)
D-Dimer 1.30 H ug/mlFEU
(0.00-0.50)
BUN 27 H mg/dl
(7-17)
Creatinine 0.5 L mg/dL
(0.6-1.0)
Glucose 116 H mg/dl
(70-99)
10/20/23 19:27
10/20/23 19:27
Vital Signs
Initial and Last Documented VS:
Initial Vital Signs
Temp Pulse Resp BP Pulse Ox
98.8 F 118 22 208/130 94
10/20/23 18:57 10/20/23 18:57 10/20/23 18:57 10/20/23 18:57 10/20/23 18:57
Last Documented Vital Signs
Temp Pulse Resp BP Pulse Ox
98.8 F 99 27 166/76 96
10/20/23 18:57 10/20/23 21:29 10/20/23 21:00 10/20/23 21:29 10/20/23 21:00
[place];Екатерина Carter PA-C - Last Filed: 10/20/23 21:53>
MDM/Problems Addressed
Differential Diagnosis Includes:
chf, copd, PE
MDM/Problems Addressed:
77 y/o F
with copd with home o2; having to wear o2 more often; edema in legs worse; no dx previously of CHF; had acute SOB this afternoon; was hypertensive, tachy, stable o2 on her 2L; wheezing and cracklesin bases; leg edema, BNP 4000, cxr looks like mild
pulm edema; but becuase of her tachycardia, i did do a d dimer which was elevated, pending ct scan; 1st dose of lasix ordered for CHF; no cp, trop 0.017
ekg nonischemic
<Екатерина Carter PA-C - Last Filed: 10/20/23 21:53>
*Critical Care Note
Total Time (30-74mins, 75-104mins- exclusive of procedures): Not Applicable
ED Attending Note
<Екатерина Carter PA-C - Last Filed: 10/20/23 21:53>
-
Portions of this chart may have been created with voice recognition software.� Occasional wrong word or��sound alike� substitutions may have occurred due to the inherent limitations of voice recognition software.
<Librado Thomas DO - Last Filed: 10/20/23 22:39>
ED Attending Note
Patient seen and examined by attending physician: Yes
I performed the substantive portion of visit, reviewed & personally made and approve the management plan that is documented in note by myself or EARLINE.: Yes
ED Attending Note:
Seen with TYLER examined independently 77-year-old female short of breath and heart failure elevated D-dimer negative CT of the chest looks better after oxygen diuretic
Discharge Plan
Departure
Patient Disposition: Admit
Date of Disposition: 10/20/23
Time of Disposition: 21:48
Admit to: Telemetry
Presentation/result/management discussed w/ accepting MD/DO: Hospitalist
Condition: Fair
Covid-19: Not Applicable
Discharge Problem:
CHF (congestive heart failure)
Prescriptions:
No Action
cyanocobalamin (vitamin B-12) [Vitamin B-12] 1,000 mcg Tablet
1,000 mcg PO DAILY Qty: 0
albuterol sulfate 90 mcg/actuation Hfa Aerosol Inhaler
2 puff INHALATION R Q4HPRN PRN (Reason: sob)
cholecalciferol (vitamin D3) [Vitamin D3] 25 mcg (1,000 unit) Tablet
25 mcg PO DAILY Qty: 0
aspirin-caffeine 500-32.5 mg Tablet
2 tab PO BID
Patient Comments:
09/03/2023, pt. states that sometimes she will take an additional dose of this med. in the middle of the night.
aspirin-caffeine 500-32.5 mg Tablet
2 tab PO DAILY PRN (Reason: mild pain)
Ex-Lax
2 tab PO DAILYPRN PRN (Reason: constipation)
Trelegy Ellipta 100-62.5-25 mcg Blister With Device
1 inh INHALATION R DAILY
melatonin
2 - 3 tab PO HS
Referrals:
Justyn Lin DO [Family Provider] -
Interventions
Interventions:
*Risk Screen - Suicide Last Done: 10/20/23 18:57
*General Assessment Last Done: 10/20/23 19:25
*Neglect/Abuse Screening Last Done: 10/20/23 18:57
ED- Fall Risk Assessment Last Done: 10/20/23 19:24
*ED COVID-19 Vaccine History Last Done: 10/20/23 18:57
ED- Cardiac Assessment Last Done: 10/20/23 19:20
ED- Pulmonary Assessment Last Done: 10/20/23 19:20
[2023-10-20 21:00] VITALS: BP 166/76
[2023-10-20] MEDS: LASIX 40 MG IV (21:29)
[2023-10-20 22:00] VITALS: BP 168/87
--- NOTE | 2023-10-20 22:00 | HPS.HSE ---
Addendum entered and electronically signed by David Wu MD 10/20/23 22:45:
I saw and examined the patient.
The RESIDENT INTERN or PA's note was reviewed and I agree with the note.
Comment:
HPI
77F lives alone, current smoker till 2 days ago, COPD, home O2 with ambulation and HS HX LVEF 40-45, no prior Dx of CHF BiB Daughter for progressibe SoB since last week end. Denied productive cough, colored sputum. Denied exposure to sick
contacts with Covid or Flu. last few days daughter noted low POx, use more hours of home O2.
Today , TREVIZO with minimal exertion prompted daughter to borough her in to ER.
ROS:
Denied fever
Denied CP
Denied Donato swelling
PHX
COPD, asthma
Current smoker
vitamin D deficiency,
vitamin B12 deficiency
Hypertension
Reviewed VS: Afebrile tachycardic 110s LAURI 210/130 --> 175/90 POx 87% --> 96 on on 2 L
PE
Gen: Not toxic looking
HEENT: anicteric , speech without SoB. Wearing NC O2 2L. POx as above
Neck: no JVD
Lungs: symmetric AE. B/L poor air entry. Not wheeze on my exm
Cor: RRR S1 S2 No mm
Abdomen: soft NT NG NRT
LANGUAGE PATH: AAO3 NFnD
MS: trace b/l Donato edema
Psych: calm
Data
Unremarkable CBC
Unremarkable CMP
NEG TPNI
DD 1.3
pro BNP 4470 -was 4080 in Sep this yr
EKG report
NORMAL SINUS RHYTHM
NONSPECIFIC ST AND T WAVE ABNORMALITY
ABNORMAL ECG
CXR
1. Mild acute interstitial and alveolar cardiogenic pulmonary edema.
2. Small bilateral pleural effusions.
3. Moderate cardiomegaly.
CTC chest PE study
1. MILD ACUTE INTERSTITIAL CARDIOGENIC PULMONARY EDEMA.
2. SMALL BILATERAL PLEURAL EFFUSIONS with adjacent mild compressive subsegmental atelectasis in the lower lobes.
3. MODERATE CARDIOMEGALY with suggestion of a dilated cardiomyopathy.
4. Mild mediastinal lymphadenopathy.
10/09/23 TTE
LVEF 40-45 '
Nl RV size and function
Last hospitalist admission: 09/03/23 - 09/06/23 DC Dxs: AE COPD , Hypoxic RF
ASSESSMENT & PLAN
Progressive Trevizo with minimal exertion
Acute on chronic hypoxic RF on NC O2 due to suspect acute HFrEF: new onset ? HX LVEF 40- 45
+/_ Element of COPD AE
- was not on Home PO lasix
- IV Lasix 40 daily
- IV Decadron 4mg q8h
- DuoNeb qid and PRN
- keep POx > 93 % and suppot with cont NC O2 for now
- Consult: CBC card and Pul
Elevated DD
No CTC evidence acute PE
Current smoker - Nicotine dependency - less likely she will quit
- cessation of smoking advise
DVT Px: LMWH
DNR/DNI per living will confirmed by patient and POA daughter
IP TLM
Original Note:
Family Physician
-
Family Physician: Justyn Lin
Chief Complaint
-
Shortness of breath, TREVIZO
History of Present Illness
77-year-old female with history of COPD on chronic home O2 who complains of worsening dyspnea with orthopnea at night needing extra pillows. She is currently following with pulmonary and is doing a home sleep study now. She reports she does not
have portable oxygen when walking to the car and felt extremely short of breath. She is supposed to be wearing oxygen with ambulation. She was unable to check her O2 but her friend was able to bring oxygen out to her pulse ox was 92% approximately
after 15 minutes. She does report increased leg edema. She is still currently smoking. Reports had several cigarettes a few days ago and typically now is smoking 2 to 3 cigarettes a day although family member believes it is more. The patient
believes she is smoking a lower nicotine cigarette so that is fine she denies current fever, chills, chest pain, palpitations, cough, abdominal pain, nausea, vomiting, diarrhea, urinary symptoms. She has past medical history of COPD on chronic O2 2
L at home typically during the night, HTN, HLD, active smoker 1.5 packs x 65 years,vitamin D deficiency, vitamin B12 deficiency,
Medical History
Past Medical History
Past Medical History: Reports Other (history of COPD, asthma, current smoker, vitamin D deficiency, vitamin B12 deficiency, hypertension not on any medications)
Past Surgical History: Reports Other (Tonsillectomy, appendectomy)
Social History
Tobacco: Smoker (1.5 to 2 pack a day x 65+ years is smoking now 2 to 4 cigarettes a day)
Alcohol: None
Drug: None
Personal: Single
Living: Alone
Employment: Retired
Family History
Family History: Other (Mother lung cancer age 88 father old age unsure)
Allergies / Home Medications
Allergies reflects when Allergies were last updated in [facility].
Home Medications with original date entered in [facility]
Allergy/Medication List:
Allergies
Allergy/AdvReac Type Severity Reaction Status Date / Time
No Known Allergies Allergy Verified 10/20/23 19:00
Home Medications
Ex-Lax 2 tab PO DAILYPRN PRN constipation 09/03/23
albuterol sulfate 90 mcg/actuation aerosol inhaler 2 puff inhalation R Q4HPRN PRN sob 09/03/23
aspirin-caffeine 500 mg-32.5 mg tablet 2 tab PO BID 09/03/23
aspirin-caffeine 500 mg-32.5 mg tablet 2 tab PO DAILY PRN mild pain 09/03/23
cholecalciferol (vitamin D3) 25 mcg (1,000 unit) tablet (Vitamin D3) 25 mcg PO DAILY ##0 09/03/23
cyanocobalamin (vitamin B-12) 1,000 mcg tablet (Vitamin B-12) 1,000 mcg PO DAILY ##0 09/03/23
fluticasone fur. 100 mcg-umeclid 62.5 mcg-vilant 25 mcg inhalat.powder (Trelegy Ellipta) 1 inh inhalation R DAILY 10/20/23
melatonin 2 - 3 tab PO HS 10/20/23
Review of Systems
-
History Source: Patient and Family (Family friend at bedside POA via phone)
A 12 point ROS was completed and negative except as noted: Yes
Constitutional: Denies Fever or Fatigue
EENT: Denies Sore Throat or Runny Nose
Respiratory: Reports Cough and Trouble Breathing (Shortness of breath, TREVIZO)
Cardiac: Denies Chest Pain, Diaphoresis, Palpitations or Syncope
Abdomen/GI: Denies Abdominal Pain, Nausea, Vomiting, Diarrhea, Constipated or Bloody Stools
: Denies Dysuria, Frequency, Flank Pain, Incontinence or Difficulty Voiding
Musculoskeletal: Reports Edema; Denies Joint Pain
Skin: Denies Itching or Rash
Neurological: Denies Dizzy, Headache or Weakness
Endocrine: Reports No Symptoms
Hematologic/Lymphatic: Reports No Symptoms
Psych: Reports Calm
Physical Exam
Vital Signs
Vital Signs
Temp Pulse Resp BP Pulse Ox
98.8 F 99 27 166/76 96
10/20/23 18:57 10/20/23 21:29 10/20/23 21:00 10/20/23 21:29 10/20/23 21:00
Physical Exam
General: Obese; No Fever or Chills
HEENT: NormoCephalic, Anicteric, PERRLA, [place] Conjunctivae, No Ptosis and Oxygen (2 L nasal cannula)
Respiratory: Wheezes (Expiratory)
Cardiac: S1/S2, Regular Rhythm and Peripheral Edema (+1 lower legs); No Murmur, Rub or Gallop
GI: Soft, Non Tender, Non Distended, Normal Bowel Sounds and No Hepatosplenomegaly
Rectal: Deferred by Provider
Genito-urinary: Deferred by me
Musculoskeletal: No Clubbing, No Cyanosis, Edema, Left Lower Extremity and Edema, Right Lower Extremity (+1); No Edema, Left Upper Extremity or Edema, Right Upper Extremity
Skin: Warm and Dry; No Rash
Neuro: AO x 3, No Motor Deficits, Nonfocal/grossly intact, Cranial Nerves Intact and No Sensory Deficits; No Slurred Speech, Facial Droop or Tremors
Psych: Calm (To agitated easily when counseled regarding smoking cessation)
Laboratory Results
-
10/20/23 19:
10/20/23:
Laboratory Results
Total Bilirubin 0.4 mg/dl (0.2-1.3) 10/20/23:
AST 30 U/L (14-36) 10/20/23:
ALT 24 U/L (0-35) 10/20/23:
Alkaline Phosphatase 76 U/L (38-126) 10/20/23:
Troponin I 0.017 ng/ml 10/20/23:
Impression/Plan
-
Impression/plan:
Admit to telemetry
#Nnew CHF/cardiomyopathy EF 40-45%
BNP 4470
I/O, daily weights
-Consult CBC cardiology
-IV Lasix 40 mg daily
2D echo 10/09/2023: EF 40-45%, moderate reduced LVSF, global hypokinesis, mild aortic stenosis
CXR:1. Mild acute interstitial and aVL or cardiogenic pulmonary edema
2. Small bilateral pleural effusions
3. Moderate cardiomegaly
EKG: NSR at 100 bpm, QTc 456 MS no significant change from September 03, 2023
CT PE study negative for PE
# Acute on chronic COPD on 2 L nasal cannula with ambulation and at night
-Continue inhaler
-IV Decadron 4 mg every 8 hours
-Consult pulmonary
Follows with pulmonary currently getting home sleep study now
#Active smoker
1.5 pack a day x 65 years reports stop 10/18/2023 (2 days ago)
-Patient still smoking 2 to 4 cigarettes a day
#Hypertension
166 will monitor
-Reports does not take any medication
#Obesity due to excess calorie consumption�BMI 29.9 kg
Weight loss recommended
Other PMH:
vitamin D deficiency-continue supplementation
vitamin B12 deficiency-continue supplementation
DVT prophylaxis
Subcu Lovenox
DNR per patient with living well at bedside
[2023-10-21] VITALS (12 sets, daily range): BP systolic 144–180; BP diastolic 66–141; PULSE 100–105; O2SAT 90–92
[2023-10-21] MEDS: DECADRON 4 MG IV ×2 (00:13→08:37)
[2023-10-21 00:41] LABS: COVID-19 Antigen Negative (Negative)
[2023-10-21] MEDS: DUONEB 3 ML INH ×4 (01:40→15:37)
[2023-10-21 07:20] LABS: % Immature Granulocytes 0.4 % (0-0.5); % Lymphocytes 4.6 % (20.5-51.1); % Monocytes 0.6 % (1.7-9.3); % Neutrophils 94.4 % (42.2-75.2); Absolute Lymphocytes 0.4 10^3/uL (1.2-3.4); Absolute Monocytes 0.1 10^3/uL (0.1-0.6); Absolute Neutrophils 7.6 10^3/uL (1.4-6.5); Hematocrit 37.7 % (37.0-47.0); Hemoglobin 12.4 g/dL (12.0-16.0); Mean Corp Hgb Conc. 32.9 g/dL (33.0-37.0); Mean Corpuscular Hgb 29.9 pg (27.0-31.0); Mean Corpuscular Volume 90.8 fL (81.0-99.0); Nucleated Red Blood Cells % 0 %; Platelet Count 254 10^3/uL (130-400); Red Blood Cell Count 4.15 10^6/uL (4.20-5.40); Red Cell Dist. Width 13.8 % (11.5-14.5)
[2023-10-21] MEDS: SYMBICORT 80/4.5 MCG INHALER 2 PUFF INH ×2 (07:23→19:20)
[2023-10-21] MEDS: SPIRIVA RESPIMAT 2.5 MCG 2 PUFF INH (07:23)
[2023-10-21 07:40] LABS: Blood Urea Nitrogen 19 mg/dl (7-17); Calcium 9.5 mg/dl (8.4-10.2); Carbon Dioxide 26 mmol/L (22-30); Chloride 107 mmol/L (98-107); Estimated Creatinine Clearance 71 ml/min; Glucose 134 mg/dl (70-99); HDL Cholesterol 74 mg/dl; LDL Cholesterol, Calculated 175 mg/dl; Potassium 3.6 mmol/L (3.5-5.1); Sodium 139 mmol/L (135-145); Total Cholesterol 273 mg/dl (50-199); Triglyceride 122 mg/dl (10-149); Very Low Density Lipoprotein 24 mg/dl (0-30); eGFR > 60.00
--- NOTE | 2023-10-21 07:52 | W.PN.HOSP.TC ---
Today's Communication/Plan
-
see AP
Assessment / Plan
Assessment / Plan
HPI: 77 yo F lives alone, current smoker, PMH COPD, home�O2 with ambulation, HFrEF (EF 40-45%), p/w progressive SOB�for several days. Denied productive cough/sputum. Denied exposure to sick contacts with Covid or Flu. Daughter noted hypoxia with
increased home O2 use.
A/P:
# SOB with progressive TREVIZO due to acute on chronic HFrEF and COPD exacerbation
# Acute on chronic hypoxic RF on home O2
Cont O2 support currently at 3L NC, at home on 2L NC
Recent echo with ejection fraction 40-45%.
Cont IV Lasix 40 daily
Cont IV Decadron 4mg q8h
Cont DuoNeb qid and PRN
CT PE has been ruled out
CBC consulted
Pulm consulted
# Elevated d dimer
PE was ruled out
Check BL LE US
# Current smoker with Nicotine dependency
counselled on smoking cessation
# Hypertension
Not on med at home, daughter indicates that pt is non-compliant at home
IV hydralazine PRN
# Obesity due to excess calorie consumption
BMI 29.9 kg
Weight loss recommended
Other PMH:
vitamin D deficiency-continue supplementation
vitamin B12 deficiency-continue supplementation
DVT prophylaxis: Subcu Lovenox
Code status: DNR/DNI per living will and confirmed by patient and POA daughter
updated daughter Stacy on the phone
Anticipated Discharge: > 48 hours
Subjective/Interval History
-
Date of Service: October 21, 2023
Objective Data
-
Labs:
Laboratory Results
10/21/23
06:59
WBC 8.0
Hgb 12.4
Hct 37.7
Plt Count 254
Sodium 139
Potassium 3.6
Chloride 107
Carbon Dioxide 26
BUN 19 H
Creatinine 0.6
Glucose 134 H
Calcium 9.5
Vital Signs:
Vital Signs
Temp Pulse Resp BP Pulse Ox
37.1 C 95 20 172/141 96
10/20/23 18:57 10/21/23 07:27 10/21/23 07:27 10/21/23 06:00 10/21/23 07:27
I&O
10/20/23 10/21/23 10/22/23
06:59 06:59 06:59
Output Total 1999
Balance -1999
Review of Systems
-
All other systems: Reviewed and negative
Physical Exam
-
General: Well Developed, Well Nourished, Comfortable, Respiratory Distress (chronic) and Conversant
HEENT: Normocephalic, Atraumatic, Nose Appears Normal, Ears Appear Normal and Oxygen (3L NC)
Respiratory: Clear to Auscultation, Wheezes and Non Labored Respirations; Negative Accessory Resp Muscle Use
Cardiac: Regular Rhythm and S1/S2
GI: Soft, Nontender, Nondistended and Normal Bowel Sounds
Skin: Warm and Dry
Neuro: Awake and Alert
Psych: Calm and Intact Judgement/Insight
Data Reviewed
-
CT Scan: Report Reviewed by me
Labs: Labs Reviewed by me
--- NOTE | 2023-10-21 07:52 | CON.CAR ---
Addendum entered and electronically signed by Boris Rubio MD 10/21/23 11:59:
77 yo female with unspecified cardiomyopathy, EF 40-45%, mild , current tobacco, COPD is admitted with acute systolic HF. She is admitted with SOB and edema. Exam with RRR, II/ systolic murmur at RUSB, trace LE edema. Cr 0.6.
Overall, she does not like to take medicine.
She is agrees to lasix. Continue IV lasix 40mg IV bid. Trend weight, Cr, tele.
Original Note:
Consultation
Consultation Request
Date/Time Consultation Requested: 10/21/232226
Date/Time Consultation Performed: 10/21/23919
Requesting Provider: Dr. Wu
Performing Provider: Steffanie HARTMAN for Dr. Rubio
Reason for Consultation: CHF
Medical History
-
Chief Complaint: SOB
History of Present Illness:
77 y/o female with recently discovered CM EF 40-45% (type unknown), COPD with O2 by [place] when needed, HTN (has refused meds with her PCP per patient), dyslipidemia (has refused meds with her PCP per patient), and smoker who is here for evaluation of
SOB that worsened yesterday. She has had recent LE edema, and 7 lbs weight gain over past 2 weeks. She reports orthopnea and one episode of PND. No CP. She is admitted for acute HFmEF and feels better after some diuresis.
Past Medical History
Past Medical History: CHF, COPD, HTN and Hypercholesterolemia
Social History
Tobacco: Smoker (has cut back but still smoking daily 2 cigarettes per day)
Family History
Family History: Reviewed & Not Pertinent
Allergies / Home Medications
Allergy/AdvReac Type Severity Reaction Status Date / Time
No Known Allergies Allergy Verified 10/20/23 19:00
Medication Instructions Recorded Confirmed Type
Ex-Lax 2 tab PO DAILYPRN PRN constipation 09/03/23 10/20/23 History
albuterol sulfate 90 mcg/actuation 2 puff inhalation R Q4HPRN PRN sob 09/03/23 10/20/23 History
aerosol inhaler
aspirin-caffeine 500 mg-32.5 mg 2 tab PO BID 09/03/23 10/20/23 History
tablet
aspirin-caffeine 500 mg-32.5 mg 2 tab PO DAILY PRN mild pain 09/03/23 10/20/23 History
tablet
cholecalciferol (vitamin D3) 25 25 mcg PO DAILY ##0 09/03/23 10/20/23 History
mcg (1,000 unit) tablet (Vitamin
D3)
cyanocobalamin (vitamin B-12) 1,000 mcg PO DAILY ##0 09/03/23 10/20/23 History
1,000 mcg tablet (Vitamin B-12)
fluticasone fur. 100 mcg-umeclid 1 inh inhalation R DAILY 10/20/23 10/20/23 History
62.5 mcg-vilant 25 mcg
inhalat.powder (Trelegy Ellipta)
melatonin 2 - 3 tab PO HS 10/20/23 10/20/23 History
Review of Systems
-
History Source: Patient
All other systems: Negative unless noted
Constitutional: Weight Gain
Respiratory: Trouble Breathing
Musculoskeletal: Edema
Physical Exam
Vital Signs
Temp Pulse Resp BP Pulse Ox
98.8 F 95 20 172/141 96
10/20/23 18:57 10/21/23 07:27 10/21/23 07:27 10/21/23 06:00 10/21/23 07:27
Lab Results
10/21/23 06:59
10/21/23 06:59
Troponin I 0.017 ng/ml 10/20/23 19:27
Wkn-V-Ggptjympmnq Pept 4470 pg/ml 10/20/23 19:27
Physical Exam
General: Well Developed and No Apparent Distress
HEENT: Normocephalic and Anicteric
Respiratory: Crackles (mild, bases)
Cardiac: Regular Rhythm and Peripheral Edema (mild BLE edema, improved per patient)
Skin: Warm and Dry
Neuro: AO x 3
Psych: Calm
Impression / Plan
-
Acute HFmEF: symptomatic improvement
-agree with IV diuresis, which requires intensive monitoring for toxicity- adjust to BID
-recent echo as below
-added CHF consults for education
-limit sodium/fluid
-follow weights, labs, I/O's
CM EF 40-45%:
-recently noted on an echo as OP with pulm
-I discussed GDMT with patient. She is historically opposed to medicines. However, she may be agreeable to try medicine if it was affordable and did not cause her bad side effects, so may be willing to try. Will start with diuresis and go from
there. Compliance is a concern, so would need to take this into account.
-consider eventual ischemic w/u once she is euvolemic, though I am not sure that she will be agreeable to this
COPD:
-not wheezing to assessment
-pulmonary on the case
HTN:
-elevated
-she declined medical management with her PCP
-monitor with diuresis
HLD:
-LDL 175
-we discussed recommendation for statin and reasoning including helping prevent stroke/[place] and she declines
Smoker:
-she has cut back, but should totally quit
Data Reviewed
-
EKG: Tracing Personally Visualized and interpreted (SR, 100 BPM, nonspecific ST/T abnormality)
Radiology: Report Reviewed by me (CXR: 1. Mild acute interstitial and alveolar cardiogenic pulmonary edema. 2. Small bilateral pleural effusions. 3. Moderate cardiomegaly.)
Medical Tests (Nuc Med, Echo etc): Report Reviewed by me (10/09/23 echo: Moderately reduced LV systolic function. Global hypokinesis. EF 40-45%. Mild . )
Labs: Labs Reviewed by me
--- NOTE | 2023-10-21 08:22 | CON.PUL ---
Consultation
Consultation Request
Date/Time Consultation Requested: 10/20
Date/Time Consultation Performed: 10/21/2023
Reason for Consultation: Shortness of breath
Medical History
-
History of Present Illness:
History obtained from the chart, hospital records, outpatient records, and from the patient. 77-year-old female history of COPD recently hospitalized September 2023 for COPD exacerbation, sent home on home oxygen, 2 L. She has a history of
hypertension. She was doing well, waiting to do a home sleep test. She decided to go buy batteries, and upon walking to the car, she felt short of breath. She denied chest pain, chest tightness, obvious pleurisy. She has a mild productive cough
but this is improved within 1 month ago. Denies hemoptysis. For this reason she brought her self into [facility] where upon arrival she was afebrile, pulse 118, breathing at 22, blood pressure 208/130, 94%. She was given nebulized therapy
Lasix therapy. CT chest was obtained, PE was ruled out. She was given 1 dose of IV steroids. We are asked to comment on her pulmonary process. Chest x-ray suggested pulm edema, proBNP elevated 4000. Presently she is feeling much improved.
She admits to increased lower extremity swelling over the past few days, about a 7 pound weight gain over the past few weeks. She stopped smoking 1 month ago, but admits to smoking few cigarettes for the past few days. She admits to liking salt
and adding significant amount of salt to her food. She also admits to sleeping upright over the last few days as it made her feel better.
Of note, during her recent hospital stay in September, she was not seen by pulmonary
.
PMH: History of COPD on home oxygen, history of pneumonia, hypertension, suspected sleep apnea. She has a history of hepatitis A diagnosed at age 15
Past Medical History
Past Medical History: None (See above)
Past Surgical History: None ( see above)
Social History
Tobacco: Former Smoker (Quit September 2023 but occasionally smokes few cigarettes for the past few days. Greater than 45-pojn-ilss history)
Alcohol: Occasional
Drug: None
Living: Alone
Employment: Retired
Environmental Exposures: Born in [place], lived in [place], [place]
Family History
Family History: Other (Family history of brain cancer. She has 6 siblings. There is no family history of lung cancer, lung disease, blood clots)
Allergies / Home Medications
Allergies
Allergy/AdvReac Type Severity Reaction Status Date / Time
No Known Allergies Allergy Verified 10/20/23 19:00
Home Medications
Medication Instructions Recorded Confirmed Last Taken Type
Ex-Lax 2 tab PO DAILYPRN PRN constipation 09/03/23 10/20/23 1 Week Ago History
~08/27/23
albuterol sulfate 90 mcg/actuation 2 puff inhalation R Q4HPRN PRN sob 09/03/23 10/20/23 10/20/23 13:00 History
aerosol inhaler
aspirin-caffeine 500 mg-32.5 mg 2 tab PO BID 09/03/23 10/20/23 10/20/23 History
tablet
aspirin-caffeine 500 mg-32.5 mg 2 tab PO DAILY PRN mild pain 09/03/23 10/20/23 Unknown History
tablet
cholecalciferol (vitamin D3) 25 25 mcg PO DAILY ##0 09/03/23 10/20/23 10/20/23 History
mcg (1,000 unit) tablet (Vitamin
D3)
cyanocobalamin (vitamin B-12) 1,000 mcg PO DAILY ##0 09/03/23 10/20/23 10/20/23 History
1,000 mcg tablet (Vitamin B-12)
fluticasone fur. 100 mcg-umeclid 1 inh inhalation R DAILY 10/20/23 10/20/23 3 Days Ago History
62.5 mcg-vilant 25 mcg ~10/17/23
inhalat.powder (Trelegy Ellipta)
melatonin 2 - 3 tab PO HS 10/20/23 10/20/23 Unknown History
Review of Systems
-
All other systems: Negative unless noted
Vitals / Labs / Diagnostic Testing
Vital Signs
Temp Pulse Resp BP Pulse Ox
98.8 F 95 20 172/141 96
10/20/23 18:57 10/21/23 07:27 10/21/23 07:27 10/21/23 06:00 10/21/23 07:27
Lab Data
10/21/23 06:59
10/21/23 06:59
Microbiology
10/21/23 00:14 Nasal Swab Influenza Types A & B (CLAUDIA) - Final
Negative for Influenza A & B, NAAT
Negative results must be combined with clinical observations
and patient history.
Nucleic Acid Amplification test (NAAT)performed on the
[facility] platform.
Diagnostic Testing:
Physical Exam
-
HEENT: Normocephalic and Anicteric
Cardiovascular: S1/S2, Regular Rhythm, Murmur (n), Rub (n), Peripheral Edema (n) and Calf Tenderness (n)
Respiratory: Wheeze (n), Rales (Bibasilar), Rhonchi (n), Non-Labored Respirations and Other (Decreased overall)
GI: Soft, Non Distended and Non Tender
Neurology: Awake, Alert and No Motor Deficits (Able to sit up without assistance)
Skin: Other (Few scattered ecchymoses) and Other (PIP arthritic changes)
General: Comfortable (Conversant and in good spirits)
Assessment
-
77-year-old female with recent hospital stay September 2023 for acute COPD exacerbation, not seen by pulmonary at that time but followed up with pulmonary shortly thereafter. Patient has been on oxygen therapy for the last month. During her recent
office visit, FEV1 54%. Echocardiogram was ordered. Presents with few days of increased shortness of breath, increased lower extremity swelling, orthopnea. We are asked to help from pulmonary standpoint 10/21/2023
Acute hypoxic respiratory insufficiency, requiring 5 L of oxygen
Baseline 2 L since September 2023
Suspected acute congestive heart failure
Elevated proBNP, increased lower extremity swelling, weight gain
Bibasilar crackles
Orthopnea
Cardiomyopathy, EF 40%
Mild aortic stenosis, valve area 1.9 cm
Pulm hypertension, PA pressure 53
Normal RV size and function
Suspected sleep apnea
HST pending
Moderate to severe COPD, FEV1 54%
On Trelegy
Hypertension
Poorly controlled, likely component of hypertensive emergency
Plan/recommendations
At this time, patient appears to be much improved post diuresis. She also received nebs and IV steroids. Chest exam and presentation more consistent with heart failure patient also describes orthopnea
The patient also describes orthopnea
Bibasilar crackles noted on exam
Moving forward
Wean oxygen down to 2 L
Discontinue steroids
Continue with Symbicort, Spiriva
Suspect that poorly controlled blood pressure in the setting of cardiomyopathy, valvular disease, pulmonary hypertension and dietary discretion let the primary heart failure
COPD teaching
Reviewed with patient importance of tobacco cessation
She did sneak few cigarettes for the past few days but did quit in September
She will need follow-up with her home sleep study given strong suspicion for sleep apnea
Reviewed with patient, ED nurse
Will follow
[2023-10-21] MEDS: VITAMIN D3 (cholecalciferol) 25 MCG PO (08:37)
[2023-10-21] MEDS: VITAMIN B-12 1000 MCG PO (08:37)
[2023-10-21] MEDS: LASIX 40 MG IV ×2 (08:37→16:57)
--- NOTE | 2023-10-21 10:33 | PTCARENOTE ---
pt aaox3. states no pain. wang when walking to bathroom. nc2l. breath sounds diminished at base with crackles. am care done.
--- NOTE | 2023-10-21 12:48 | PTCARENOTE ---
pt refusing any medication for high bp. states it will go down on its own. will recheck bp
--- NOTE | 2023-10-21 16:04 | PTCARENOTE ---
transferred to room with all belongings on 2lo2.
[2023-10-21] MEDS: VENTOLIN NEBULES 2.5 MG INH (19:20)
[2023-10-21] MEDS: MELATONIN 5 MG PO (22:27)
[2023-10-22] MEDS: MELATONIN 5 MG PO (00:20)
[2023-10-22 03:00] VITALS: BP 140/80
[2023-10-22] MEDS: VENTOLIN NEBULES 2.5 MG INH ×2 (07:20→11:10)
[2023-10-22] MEDS: SYMBICORT 80/4.5 MCG INHALER 2 PUFF INH (07:21)
[2023-10-22] MEDS: SPIRIVA RESPIMAT 2.5 MCG 2 PUFF INH (07:21)
[2023-10-22 07:30] VITALS: BP 161/78
[2023-10-22] MEDS: VITAMIN B-12 1000 MCG PO (08:24)
[2023-10-22] MEDS: LASIX 40 MG IV ×2 (08:24→15:15)
[2023-10-22] MEDS: VITAMIN D3 (cholecalciferol) 25 MCG PO (08:24)
--- NOTE | 2023-10-22 09:36 | W.PN.PUL3 ---
Today's Communication / Plan
-
Home O2 eval, reviewed with patient and RT
Continue diuresis per cards team
OOB/PT
Discharge planning per team
Outpatient pulmonary FU recommended
Assessment
-
77-year-old female with recent hospital stay September 2023 for acute COPD exacerbation, not seen by pulmonary at that time but followed up with pulmonary shortly thereafter. Patient has been on oxygen therapy for the last month. During her recent
office visit, FEV1 54%. Echocardiogram was ordered. Presents with few days of increased shortness of breath, increased lower extremity swelling, orthopnea. We are asked to help from pulmonary standpoint 10/21/2023
Acute hypoxic respiratory insufficiency, requiring 5 L of oxygen
Baseline 2 L since September 2023
Suspected acute congestive heart failure
Elevated proBNP, increased lower extremity swelling, weight gain
Bibasilar crackles
Orthopnea
Cardiomyopathy, EF 40%
Mild aortic stenosis, valve area 1.9 cm
Pulm hypertension, PA pressure 53
Normal RV size and function
Suspected sleep apnea
HST pending
Moderate to severe COPD, FEV1 54%
On Trelegy
Hypertension
Poorly controlled, likely component of hypertensive emergency
Plan/recommendations
At this time, patient appears to be much improved post diuresis.
She also received nebs and IV steroids.
Chest exam and presentation more consistent with heart failure patient also describes orthopnea
The patient also describes orthopnea
Bibasilar crackles noted on exam--this has resolved
Moving forward
Wean oxygen down to 2 L, baseline use
Discontinue steroids
Continue with Symbicort, Spiriva
Home O2 eval for transport reasons, she has declined tanks but has concentrator at home
We will clarify her needs
Suspect that poorly controlled blood pressure in the setting of cardiomyopathy, valvular disease, pulmonary hypertension and dietary discretion let the primary heart failure
COPD teaching
Reviewed with patient importance of tobacco cessation
She did sneak few cigarettes for the past few days but did quit in September
She will need follow-up with her home sleep study given strong suspicion for sleep apnea
Reviewed with patient, ED nurse
Outpatient pulmonary FU reviewed with [facility]
She will need to be rescheduled
Subjective Data
-
Date of Service:
Date of Service: October 22, 2023
Chief Complaint: Pulmonary Follow Up
Subjective:
Doing well today, maintained on baseline O2
Wants to go home
Objective Data
Data Reviewed
Vital Signs / I&O / Oxygen:
Vital Signs
Temp Pulse Resp BP Pulse Ox
98.4 F 94 22 161/78 98
10/22/23 07:30 10/22/23 07:30 10/22/23 07:30 10/22/23 07:30 10/22/23 07:30
Intake and Output
10/21/23 10/22/23 10/23/23
06:59 06:59 06:59
Intake Total 720 / 720
Output Total 1999 / 1999
Balance -1999 / -1999 720 / 720
SaO2 98
Nasal Cannula flow liters per 4
minute
Physical Exam
General: Comfortable and Other (NAD)
HEENT: Normocephalic, Anicteric and Moist Mucous Membranes
Cardiovascular: S1-S2 and Regular Rhythm
Respiratory: Clear and Non-Labored Respirations
GI: Soft, Non Distended and Non Tender
Neurology: Awake, Alert, Oriented, AO x 3 and No Motor Deficits
Skin: Warm, Dry and Good Color
Labs/Micro/Reports
Microbiology
10/21/23 00:14 Nasal Swab Influenza Types A & B (CLAUDIA) - Final
Negative for Influenza A & B, NAAT
Negative results must be combined with clinical observations
and patient history.
Nucleic Acid Amplification test (NAAT)performed on the
[facility] platform.
[2023-10-22 09:40] LABS: Hematocrit 38.3 % (37.0-47.0); Hemoglobin 12.6 g/dL (12.0-16.0); Mean Corp Hgb Conc. 32.9 g/dL (33.0-37.0); Mean Corpuscular Hgb 30.4 pg (27.0-31.0); Mean Corpuscular Volume 92.5 fL (81.0-99.0); Mean Platelet Volume 11.4 fL (7.4-10.4); Platelet Count 248 10^3/uL (130-400); Red Blood Cell Count 4.14 10^6/uL (4.20-5.40); Red Cell Dist. Width 14.3 % (11.5-14.5)
--- NOTE | 2023-10-22 09:55 | W.PN.CD ---
Addendum entered and electronically signed by Tee Hope MD 10/22/23 10:32:
I saw and examined the patient.
The [employer] SYSTEM ADMINISTRATOR's note was reviewed and I agree with the note.
Comment: Patient without complaint other than wanting to smoke more after we advise her to quit smoking. She has clear lungs b/l and rrr no m/r/g. She has trace edema. She will refuse GDMT. This will likely result in readmission and progressive
failure.
Addendum entered and electronically signed by DEVAN Carrasco 10/22/23 10:18:
Down 3 kg this admit, renal labs stable
Original Note:
Today's Communication / Plan
-
-continue IV diuresis
-await labs and weight this AM (both pending)
-declines GDMT
Impression / Plan
-
Assessment/Plan: 77 y/o female with recently discovered CM EF 40-45% (type unknown), COPD with O2 by [place] when needed, HTN (has refused meds with her PCP per patient), dyslipidemia (has refused meds with her PCP per patient), and smoker who is here
for evaluation of worsened SOB, as well as LE edema and 7 lb weight gain, orthopnea/ PND. No CP. She is admitted for acute HFmEF and feels better after some diuresis.
Acute HFmEF:
-recent echo with moderately reduced left ventricular systolic function. Global hypokinesis. Left ventricular ejection fraction is 40-45%. Mild aortic stenosis
-CHF consults for education
-limit sodium/fluid
-weight and labs pending from this AM. I asked nursing to check weight- they are doing so now.
-remains on O2, wean as tolerated per protocol
CM EF 40-45%:
-recently noted on an echo as OP with pulm
-I discussed GDMT with patient, and reasoning for it. She is historically opposed to medicines. Yesterday, she told me she would consider adding medicines if affordable and limited side effects, but today she reports she will only take the diuretic.
COPD:
-not wheezing to assessment
-pulmonary on the case
HTN:
-elevated at times
-she declined medical management with her PCP, and declines medical management now
-monitor with diuresis
HLD:
-LDL 175
-we discussed recommendation for statin and reasoning including helping prevent stroke/[place] and she declines
Smoker:
-she has cut back, but should totally quit
Subjective:
Denies CP or palpitations
SOB improved
Physical Exam
Vital Signs/Labs
Vital Signs
Temp Pulse Resp BP Pulse Ox
98.4 F 94 22 161/78 98
10/22/23 07:30 10/22/23 07:30 10/22/23 07:30 10/22/23 07:30 10/22/23 07:30
10/21/23 10/22/23 10/23/23
06:59 06:59 06:59
Actual Weight 71.668 kg
10/22/23 08:10
Triglycerides 122 mg/dl (10-149) 10/21/23 06:59
LDL Cholesterol, Calc 175 mg/dl 10/21/23 06:59
VLDL Cholesterol, Calc 24 mg/dl (0-30) 10/21/23 06:59
HDL Cholesterol 74 mg/dl 10/21/23 06:59
10/20/23
19:27
Wvm-L-Ssdjzwemtuu Pept 4470
LAB Results
10/20/23
19:27
Troponin I 0.017
Physical Exam
Constitutional: No acute distress
EENT: Anicteric
Cardiovascular: Rhythm & rate is regular
Respiratory: Respiratory effort normal, Wheeze Absent, Rhonchi Absent and Other (on O2 by NC)
Neuro/Psych: AO x 3
Data Reviewed
-
Date of Service: October 22, 2023
EKG: Other (tele SR)
Labs: Labs Reviewed by me
[2023-10-22 10:11] VITALS: BMI 28.5
[2023-10-22 10:11] LABS: Blood Urea Nitrogen 27 mg/dl (7-17); Carbon Dioxide 30 mmol/L (22-30); Chloride 101 mmol/L (98-107); Estimated Creatinine Clearance 53 ml/min; Glucose 85 mg/dl (70-99); Potassium 3.7 mmol/L (3.5-5.1); Sodium 137 mmol/L (135-145); eGFR > 60.00
--- NOTE | 2023-10-22 10:50 | W.PN.HOSP.TC ---
Addendum entered and electronically signed by Lolita Carcamo MD 10/22/23 14:19:
total DC time 35 min
Original Note:
Today's Communication/Plan
-
DC home with HH
Assessment / Plan
Assessment / Plan
HPI: 77 yo F lives alone, current smoker, PMH COPD, home�O2 with ambulation, HFrEF (EF 40-45%), p/w progressive SOB�for several days. Denied productive cough/sputum. Denied exposure to sick contacts with Covid or Flu. Daughter noted hypoxia with
increased home O2 use.
A/P:
# SOB with progressive TREVIZO due to acute on chronic HFrEF and possible mild COPD exacerbation
# Acute on chronic hypoxic RF on home O2
Cont O2 support, back to 2L NC, at home on 2L NC
Recent echo with ejection fraction 40-45%.
IV Lasix 40 BID to PO daily upon discharge
Off IV Decadron
Cont DuoNeb qid and PRN
CT PE has been ruled out
Appreciate Card and Pulm input
# Elevated d dimer
VTE ruled out. CT neg for PE, BL LE US neg for DVT
# Current smoker with Nicotine dependency
counselled on smoking cessation
# Hypertension
Not on med at home, daughter indicates that pt is non-compliant at home
IV hydralazine PRN
Discussed better BP control with pt and she declined to start any anti-hypertensive. She states that she will follow up with her PCP outpt
# Obesity due to excess calorie consumption
BMI 29.9 kg
Weight loss recommended
Other PMH:
vitamin D deficiency-continue supplementation
vitamin B12 deficiency-continue supplementation
DVT prophylaxis: Subcu Lovenox
Code status: DNR/DNI per living will and confirmed by patient and POA daughter
Dispo: PT rec HH
DW RN
DW CM
DW Card Dr Hope
updated daughter Stacy on the phone
Anticipated Discharge: Today
Subjective/Interval History
-
Date of Service: October 22, 2023
Objective Data
-
Labs:
Laboratory Results
10/22/23
08:10
WBC 10.0
Hgb 12.6
Hct 38.3
Plt Count 248
Sodium 137
Potassium 3.7
Chloride 101
Carbon Dioxide 30
BUN 27 H
Creatinine 0.8
Glucose 85
Calcium 10.0
Vital Signs:
Vital Signs
Temp Pulse Resp BP Pulse Ox
36.9 C 94 22 161/78 98
10/22/23 07:30 10/22/23 07:30 10/22/23 07:30 10/22/23 07:30 10/22/23 07:30
I&O
10/21/23 10/22/23 10/23/23
06:59 06:59 06:59
Intake Total 720 / 720
Output Total 1999
Balance -1999 -1999 720 / 720
Review of Systems
-
All other systems: Reviewed and negative
Physical Exam
-
General: Well Developed, Well Nourished, Comfortable, Respiratory Distress (chronic) and Conversant
HEENT: Normocephalic, Atraumatic, Nose Appears Normal, Ears Appear Normal and Oxygen (2L NC)
Respiratory: Clear to Auscultation and Non Labored Respirations; Negative Wheezes or Accessory Resp Muscle Use
Cardiac: Regular Rhythm and S1/S2
GI: Soft, Nontender, Nondistended and Normal Bowel Sounds
Skin: Warm and Dry
Neuro: Awake and Alert
Psych: Calm and Intact Judgement/Insight
Data Reviewed
-
CT Scan: Report Reviewed by me
Labs: Labs Reviewed by me
[2023-10-22 11:19] VITALS: BP 160/86
[2023-10-22] MEDS: NON-FORMULARY ITEM 2 TABLET PO (11:53)
[2023-10-22] MEDS: MUCINEX 1200 MG PO (11:53)
--- NOTE | 2023-10-22 11:56 | CM ---
Addendum entered by Charlee Caban 10/22/23 15:57:
referral sent to [facility] via all scripts.
Original Note:
Patient seen at bedside. Patient states that she lives in a 1 story home with no needs. Patient has had [facility] in the past and would like to have them again. Patient has home O2 at home from [facility]. Patient has portable canisters and plans to not
use them for transportation home. Patient PCP is Dr. Lin and she stated that her pharmacy has not changed since her last hospitalization. CM called and left for patient daughter Wilda to review discharge planning with her. CM will
continue to follow for discharge planning needs.
Plan; home with Madan to follow, home O2 from [facility] in place
--- NOTE | 2023-10-22 14:04 | W.DCSUMMARY ---
Discharge Summary
Discharge Data
Date of Admission: 10/20/23
Date of Discharge: 10/22/23
-
Pending Results: No
Hospital Course
Principal Diagnosis:
Shortness of breath with progressive dyspnea exertion due to acute on chronic heart failure with reduced ejection fraction
Possible mild COPD exacerbation on admission
Hypertension
Chronic Diagnoses:�
Current smoker (although patient denies) with Nicotine dependency
Chronic obstructive pulmonary disease with chronic hypoxic respiratory failure on 2 L nasal cannula at home
Obesity due to excess calorie consumption, BMI 29.9 kg
vitamin D deficiency on supplementation
vitamin B12 deficiency on supplementation
Consultations:�
Cardiology
Pulmonary
Procedures:�
None
Clinical course:�
This is a 77-year-old female, with past medical history as stated above, who presented with shortness of breath and dyspnea exertion for several days. Her daughter has noticed that she has become more hypoxic with increased oxygen use at home.
Problem 1:
Shortness of breath with progressive dyspnea exertion due to acute on chronic heart failure with reduced ejection fraction.
There may also be possible mild COPD exacerbation on admission.
She was treated with IV Lasix 40 mg twice daily while in the hospital, and can continue with 40 mg daily following discharge.
Of note, her recent echocardiogram noted an EF of 40 to 45%.
She received IV Decadron for 2 days while in the hospital, but steroid was not continued after that.
Acute PE was ruled out.
The patient was discharged home with home health.
Problem 2:
Current smoker with nicotine dependency.
She has been counseled on smoking cessation.
Problem 3:
Uncontrolled Hypertension.
The patient is adamant about NOT starting any antihypertensive.
She stated that she will discuss this with her PCP outpatient.
As for the rest of her medical problems, they were stable during her hospital stay.
Discharge Plan
-
Patient Disposition: Home with Home Care
Discharge Diagnosis/Procedures: Shortness of breath due to acute on chronic heart failure with reduced ejection fraction
Condition: Fair
Diet: As tolerated, Low Fat, Low Cholesterol, Low Sodium and Restrict fluids to 64 oz
Activity: As tolerated
Blood Work: BMP in 1 week, result to PCP
Referrals:
Claudy Carrasquillo MD [Active] - (needs appt with [facility] or [facility] in 2-3 weeks with Full PFT)
Justyn Lin DO [Family Provider] - in less than 1 week
Additional Discharge Medication Instructions: take lasix 40 mg daily going forward
Prescriptions:
New
furosemide [Lasix] 40 mg tablet
40 mg PO DAILY Qty: 30 0RF
Continued
cyanocobalamin (vitamin B-12) [Vitamin B-12] 1,000 mcg Tablet
1,000 mcg PO DAILY Qty: 0
albuterol sulfate 90 mcg/actuation Hfa Aerosol Inhaler
2 puff INHALATION R Q4HPRN PRN (Reason: sob)
cholecalciferol (vitamin D3) [Vitamin D3] 25 mcg (1,000 unit) Tablet
25 mcg PO DAILY Qty: 0
aspirin-caffeine 500-32.5 mg Tablet
2 tab PO BID
Patient Comments:
09/03/2023, pt. states that sometimes she will take an additional dose of this med. in the middle of the night.
aspirin-caffeine 500-32.5 mg Tablet
2 tab PO DAILY PRN (Reason: mild pain)
Ex-Lax
2 tab PO DAILYPRN PRN (Reason: constipation)
Trelegy Ellipta 100-62.5-25 mcg Blister With Device
1 inh INHALATION R DAILY
melatonin
2 - 3 tab PO HS
Discharge Orders:
Discharge Patient (As Directed); Ordered 10/22/23
Ordered By: Lolita Carcamo
[2023-10-22 15:23] VITALS: BP 133/62
[2023-10-22] MEDS: VENTOLIN NEBULES INH (15:23)
== END 2023-10-22 16:26 | disposition home health service (06) | DRG 291 ==
LOC: 4 WEST ACU 22:41
PROVIDERS: Clinical Nurse Specialist Family Health; Emergency Medicine; Physician Assistant; ADMITTING PHYSICIAN Internal Medicine; ATTENDING PHYSICIAN Internal Medicine; EMERGENCY PHYSICIAN Emergency Medicine; FAMILY PHYSICIAN Family Medicine; OTHER PHYSICIAN Internal Medicine; OTHER PHYSICIAN Internal Medicine Critical Care Medicine
DX: I11.0 Hypertensive heart disease with heart failure (principal); I50.23 Acute on chronic systolic (congestive) heart failure; J96.21 Acute and chronic respiratory failure with hypoxia; J44.1 Chronic obstructive pulmonary disease with (acute) exacerbation; J90 Pleural effusion, not elsewhere classified; I16.1 Hypertensive emergency; I42.9 Cardiomyopathy, unspecified; E78.00 Pure hypercholesterolemia, unspecified; F17.210 Nicotine dependence, cigarettes, uncomplicated; E55.9 Vitamin D deficiency, unspecified; E53.8 Deficiency of other specified B group vitamins; I35.0 Nonrheumatic aortic (valve) stenosis; G47.30 Sleep apnea, unspecified; I27.20 Pulmonary hypertension, unspecified; E66.09 Other obesity due to excess calories; Z66 Do not resuscitate; Z60.2 Problems related to living alone; Z99.81 Dependence on supplemental oxygen; Z11.52 Encounter for screening for COVID-19; Z68.29 Body mass index [BMI] 29.0-29.9, adult; Z87.01 Personal history of pneumonia (recurrent); Z80.8 Family history of malignant neoplasm of other organs or systems; Z91.148 Patient's other noncompliance with medication regimen for other reason
CPT/HCPCS: 71046; 71275; 80048; 80053; 80061; 83880; 84484; 85025; 85027; 85379; 87502; 87811; 93005; 93970; 94640; 94760; 96374; 97166; 99285; Q9967

== ENCOUNTER 2023-12-05 11:33 | Inpatient (IN) | payer MEDICARE, SELFPAY ==
[2023-12-04 13:37] VITALS: BP 125/53
[2023-12-04 14:17] VITALS: BMI 31.8
--- NOTE | 2023-12-04 14:44 | EDRN ---
Ice applied to L shoulder and wrist, R lower face and knee at this time.
--- NOTE | 2023-12-04 15:33 | EDRN ---
Dr. Denny in to see pt.
--- NOTE | 2023-12-04 15:52 | ED.GENMED ---
History of Present Illness
General
Chief Complaint: Fall
Source: patient and family (Daughter)
Exam Limitations: none
Time Seen by Provider: 12/04/23 15:17
Nursing documentation reviewed up to this point in time: agreed with
Travel History
Have you had any contact with someone who has COVID-19?: No
Do you have any symptoms of coronavirus? Fever > 100 degrees, chills, cough, shortness of breath, sore throat, loss of taste or smell, muscle aches, or headache?: No
History of Present Illness
History of Present Illness:
78-year-old female with a past medical history of asthma, COPD, hypertension hyperlipidemia, CHF who presents to the emergency department, by her daughter for evaluation of uncontrolled pain from her fracture as well as knee pain after fall.
Patient reports that she had a mechanical fall forward yesterday in the early afternoon. She says that she hit her face, left arm and right knee on the ground. She was taken to [facility] for evaluation�there she had CT of the head and
cervical spine that was reportedly negative and she had an x-ray of her left arm which showed a spiral fracture of the humerus. According to discharge paperwork there she was recommended for admission but adamantly refused and so she was instead
discharged with an orthopedic referral. Patient's daughter says that she visited her mother today and found her essentially unable to perform any ADLs. Patient says she was having trouble walking because of right knee pain�she says that it did not
hurt initially after the fall but today it seems to be hurting her more. She did not have any imaging of her knee at [place]. Patient says that her main concern is uncontrolled pain today and she does not wish to stay in the hospital but
daughter's main concern is that she is not safe to be at home alone with her current functional status given all of these injuries. Patient at least on initial questioning tells me that she does not want to stay in the hospital today.
Past History
Past History
ED Past Medical History: Asthma, COPD (Never formally diagnosed), HTN and Hypercholesterolemia
Social History
Tobacco: Former smoker (Quit 2 days ago 30 cigarettes a day for 65 years)
Drug: None
Living: with family
Employment: Retired
Review of Systems
Review of Systems
All Other Systems: ROS reviewed and negative except as documented in HPI and ROS
Constitutional: Denies fever
Respiratory: Denies trouble breathing
Cardiac: Denies chest pain
ABD/GI: Denies abdominal pain, nausea or vomiting
: Denies flank pain
Musculoskeletal: Reports joint pain (Left arm pain, right knee pain); Denies neck pain or back pain
Neurological: Denies headache, weakness or numbness
Phy Exam
Physical Exam
Physical Exam:
General: Awake, alert; no acute distress
Head: Normocephalic, some bruising along the right jawline
Eyes: Conjunctiva normal
Throat: Airway intact, handling secretions
Neck: Trachea midline, supple without meningismus
Lungs: Clear to auscultation bilaterally, no wheezing, rales, rhonchi
Heart: Regular rate and rhythm, no murmurs, gallops, or rubs
Abd: Soft, non distended, nontender
Neuro: Cranial nerves grossly intact, speech fluid
Skin: Scattered bruises on extremities. Old
Extremities: Patient has a large splint in place on the left upper arm; she has good motor and sensory function across radial, median, ulnar nerve distribution distally in the left upper extremity and she has a good strong left radial pulse; right
upper extremity atraumatic; she has tenderness and bruising along the medial joint line in the right knee but no significant joint effusion, no laxity on varus or valgus stress, negative anterior drawer sign; left lower extremity atraumatic; good
pulses in bilateral lower extremities
Scores
Heart Failure Risk
Heart Failure Risk Score: Not Applicable
Heart Score for Chest Pain Patients
STEMI patient?: Not applicable
Withdrawal Assessment of Alcohol
Withdrawal Assessment Completed?: Not applicable
Course
Orders/Labs/Results
Orders:
Orders
12/04/23 15:45
Case Management Consult ONCE
Case Management Consult: Discharge Planning
Oxycodone [Roxicodone] 5 mg PO NOW STA
CR Knee- Right 4 Or More View* Urgent
Comment:
Reason For Exam: medial joint line pain s/p fall
12/04/23 16:00
CR Humerus - Left Min 2 Views* Urgent
Comment:
Reason For Exam: left arm fx
12/04/23 16:59
Complete Blood Count/With Diff Urgent
Comprehensive Metabolic Panel Urgent
12/04/23 17:38
ORTHOPEDIC CONSULT Urgent
Consulting Provider: Ammon Dixon
Was physician already notified: Yes
12/04/23 17:39
[place] Wrap Right-Treatment ONCE
Comment: knee
Pt Eval And Treat Urgent
Activity Level: With Assistance
12/04/23 17:50
Admit/Transfer Patient As Directed
Co-Sign Provider:
Level of Care: Observation services
Assign to:: Medical/Surgical
Physician / Group: Cari
Diagnosis: Humerus fracture
12/04/23 17:51
Code Status As Directed
Resuscitation Status: Full Code
Abnormal Lab Results
12/04/23
16:59
RBC 3.76 L 10^6/uL
(4.20-5.40)
Hgb 11.4 L g/dL
(12.0-16.0)
Hct 34.1 L %
(37.0-47.0)
MPV 10.9 H fL
(7.4-10.4)
Absolute Monos (auto) 0.7 H 10^3/uL
(0.1-0.6)
Lymphocytes % 15.8 L %
(20.5-51.1)
BUN 34 H mg/dl
(7-17)
Creatinine 1.1 H mg/dL
(0.6-1.0)
AST 42 H U/L
(14-36)
12/04/23 16:59
12/04/23 16:59
Vital Signs
Initial and Last Documented VS:
Initial Vital Signs
Temp Pulse Resp BP Pulse Ox
36.8 C 84 18 125/53 96
12/04/23 13:37 12/04/23 13:37 12/04/23 13:37 12/04/23 13:37 12/04/23 13:37
Last Documented Vital Signs
Temp Pulse Resp BP Pulse Ox
36.6 C 72 18 140/58 94
12/04/23 16:20 12/04/23 16:20 12/04/23 13:37 12/04/23 16:20 12/04/23 16:20
MDM/Problems Addressed
Differential Diagnosis Includes:
Humerus fracture is known; knee fracture, knee sprain, knee contusion
MDM/Problems Addressed:
78-year-old female presents to the emergency room for evaluation of uncontrolled pain in the left arm also complaining of pain in the right knee�had a fall yesterday was evaluated at [facility] with CT head and cervical spine, x-ray of the
left upper arm. She was discharged after refusing admission was placed in a splint. Pain has been uncontrolled since then. Unable to perform ADLs or walk. Worsening pain in the right knee. Daughter brought her in for assessment. Initially
saying she would not stay in the hospital here. I will discussion with the patient and her daughter and also involve case management that she is agreeable to stay will need placement in rehab as she is unsafe at home and family is not able to
provide enough support. Will control pain. Repeat x-ray of the humerus for better clarification of the type of fracture. Will send for an x-ray of the right knee. No need to repeat CT head and cervical spine with reportedly normal studies
yesterday. Will check basic labs. Anticipate admission.
X-ray of the humerus confirms fracture. Discussed with orthopedics likely nonsurgical maintain splint and sling. X-ray of the right knee shows tiny patellar fracture. Will place in a brace/wrap. Will plan to admit for placement. Consult placed
to orthopedist to evaluate while admitted. Discussed case with hospitalist for admission.
*Radiology
Radiology exam reviewed: preliminary read by ED provider
*Pulse Oximetry
Patient hypoxic: no
*Critical Care Note
Total Time (30-74mins, 75-104mins- exclusive of procedures): Not Applicable
Data Reviewed
Source: patient, records and family
Patient Management
Discussion with other providers: Hospitalist (Discussed with hospitalist) and [employer] (Discussed with orthopedist, discussed with case management social worker)
Escalation/DeEscalation of care consider admission/obs:
Admission indicated
ED Attending Note
-
Portions of this chart may have been created with voice recognition software.� Occasional wrong word or��sound alike� substitutions may have occurred due to the inherent limitations of voice recognition software.
Discharge Plan
Departure
Patient Disposition: Admit
Date of Disposition: 12/04/23
Time of Disposition: 17:38
Admit to doctor: Will
Presentation/result/management discussed w/ accepting MD/DO: Hospitalist
Discharge Problem:
Fracture, humerus, Injury of knee, right
Interventions
Interventions:
*Risk Screen - Suicide Last Done: 12/04/23 13:37
*General Assessment Last Done: 12/04/23 13:37
*Neglect/Abuse Screening Last Done: 12/04/23 13:37
*ED COVID-19 Vaccine History Last Done: 12/04/23 13:37
ED-Musculoskeletal Assessment Last Done: 12/04/23 14:31
ED- Neurological Assessment Last Done: 12/04/23 14:24
ED-Skin Assessment Last Done: 12/04/23 14:31
[2023-12-04] MEDS: ROXICODONE 5 MG PO ×2 (15:54→20:23)
--- NOTE | 2023-12-04 16:15 | EDRN ---
Pt voided on bedpan and Dr. Denny okayed her to drink water and take her ampicillin. Pt was then adjusted on stretcher and ice packs replaced to R lower face, L shoulder/upper arm, L wrist and R knee.
[2023-12-04 16:20] VITALS: BP 140/58
--- NOTE | 2023-12-04 16:31 | CM ---
CM was consulted to discuss discharge planning options with patient. CM met with patient and daughter in room. Patient stated that she was at [facility] after a fall. Patient made the decision to return home and declined admission. Patient returned to
[facility] after daughter arrived from out of state and felt patient was unable to function at home.
Patient explained that she is concerned about her medical bills and that's why she declined admission. Daughter further stated that there were some 'care concerns' at [facility]. As per daughter, patient is eligible for Medicaid but has been resistant
to applying. CM provided written information to daughter about patient financial services.
Patient does lives home alone with minimal assistance from the waiver program for three hours a week in [facility]. Patient also had [facility] with RN and PT. CM discussed SNF with patient and family. CM advised daughter to review Medicare. GOV
for ratings on local SNF.
Patient is now agreeable to admission and further work up for her injuries.
CM updated ED physician and bedside RN.
[2023-12-04 17:08] LABS: % Basophils 0.2 % (0-2); % Eosinophils 1.2 % (0-6); % Immature Granulocytes 0.2 % (0-0.5); % Lymphocytes 15.8 % (20.5-51.1); % Monocytes 8.5 % (1.7-9.3); % Neutrophils 74.1 % (42.2-75.2); Absolute Eosinophils 0.1 10^3/uL (0-0.7); Absolute Lymphocytes 1.4 10^3/uL (1.2-3.4); Absolute Monocytes 0.7 10^3/uL (0.1-0.6); Absolute Neutrophils 6.4 10^3/uL (1.4-6.5); Hematocrit 34.1 % (37.0-47.0); Hemoglobin 11.4 g/dL (12.0-16.0); Mean Corp Hgb Conc. 33.4 g/dL (33.0-37.0); Mean Corpuscular Hgb 30.3 pg (27.0-31.0); Mean Corpuscular Volume 90.7 fL (81.0-99.0); Mean Platelet Volume 10.9 fL (7.4-10.4); Nucleated Red Blood Cells % 0 %; Platelet Count 224 10^3/uL (130-400); Red Blood Cell Count 3.76 10^6/uL (4.20-5.40); Red Cell Dist. Width 14.1 % (11.5-14.5); White Blood Cell Count 8.6 10^3/uL (4.8-10.8)
[2023-12-04 17:23] LABS: ALT (SGPT) 22 U/L (0-35); AST (SGOT) 42 U/L (14-36); Albumin 4.1 g/dl (3.5-5.0); Alkaline Phosphatase 87 U/L (38-126); Blood Urea Nitrogen 34 mg/dl (7-17); Calcium 9.6 mg/dl (8.4-10.2); Carbon Dioxide 23 mmol/L (22-30); Chloride 104 mmol/L (98-107); Estimated Creatinine Clearance 36 ml/min; Glucose 90 mg/dl (70-99); Potassium 3.8 mmol/L (3.5-5.1); Sodium 136 mmol/L (135-145); Total Bilirubin 0.7 mg/dl (0.2-1.3); Total Protein 6.8 g/dl (6.3-8.2); eGFR 51.43
--- NOTE | 2023-12-04 17:25 | EDRN ---
Pt adjusted in bed to eat vegetarian meal her daughter brought in for her. Pt is eating supper at this time.
--- NOTE | 2023-12-04 17:35 | EDRN ---
Dr. Denny in to see pt and inform her about decision to admit her.
--- NOTE | 2023-12-04 18:05 | EDRN ---
Dr. Alcala in room w/pt.
[2023-12-04 18:14] VITALS: BP 102/55
--- NOTE | 2023-12-04 18:14 | EDRN ---
Dr. Alcala leaving pt's room at this time and stated to this RN that pt has a fractures knee cap and gave verbal order for a knee immobilizer at this time.
--- NOTE | 2023-12-04 18:18 | HPS.HSE ---
Addendum entered and electronically signed by Jose Alcala MD 12/04/23 18:53:
Regarding the right patellar fracture discussed with Ortho and send copy of the picture and he said he is on the way to the hospital, and he recommended nonweightbearing for now.
Addendum entered and electronically signed by Jose Alcala MD 12/04/23 18:44:
On medication list patient was amoxicillin every 8 hours, according to the patient and the daughter she was on it for root canal and her last dose was this afternoon and she already took it.
Addendum entered and electronically signed by Jose Alcala MD 12/04/23 18:34:
Regarding right knee patellar fracture, pain management as below will add knee immobilizer and also already been consulted, from ortho left humerus does not require surgery according to the ER physician.
Original Note:
Family Physician
-
Family Physician: Justyn Lin
Chief Complaint
-
Fall and pain in the left arm and right shoulder
History of Present Illness
78-year-old female lives at home by herself and have some care to check in on a few times a week and and her daughter checking on her, had a mechanical fall yesterday while she tripped on a cord of the vacuum window cleaner, she fell face forward and was
helped by a caregiver while did to get up, was taken to [facility] where she was diagnosed with a left humerus fracture and that look-alike was offered to be admitted but she declined and she was asked to follow-up with Ortho, she was home
and visited by the daughter today and found she was not able to do much for herself because of the left arm pain and fracture as well as right knee, therefore she was brought to our ER, she already had a splint in the left arm, and been complaining
of the pain in the right knee especially when ambulate, x-ray of the left arm confirmed left humeral fracture or right knee fracture showed nondisplaced fracture of the left patella.
Denies any fever or chill cough or congestion, no headache or vision change' has been falling before like all mechanical, denies any dizziness or syncope or palpitation or vision change prior to the fall.
She is awake, alert and oriented x 3 pain is better especially getting some oral Oxy codon, her daughter at the bedside.
Medical History
Past Medical History
Past Medical History: Reports Other
Additional Past Medical History:
Past medical history:
Asthma
Pneumonia
Hypertension
Status post appendectomy and tonsillectomy.
Social history: Lives at home alone with a caregiver and family checking on her, no smoking alcohol use.
Family history: Reviewed and noncontributory
Past Surgical History: Reports Other
Social History
Alcohol: Other
Family History
Family History: Other
Allergies / Home Medications
Allergies reflects when Allergies were last updated in [facility].
Home Medications with original date entered in [facility]
Allergy/Medication List:
Allergies
Allergy/AdvReac Type Severity Reaction Status Date / Time
No Known Allergies Allergy Verified 10/20/23 19:00
Home Medications
albuterol sulfate 90 mcg/actuation aerosol inhaler 2 puff inhalation R Q4HPRN PRN sob 09/03/23
cholecalciferol (vitamin D3) 25 mcg (1,000 unit) tablet (Vitamin D3) 25 mcg PO DAILY ##0 09/03/23
cyanocobalamin (vitamin B-12) 1,000 mcg tablet (Vitamin B-12) 1,000 mcg PO DAILY ##0 09/03/23
melatonin 10 mg tablet 20 mg PO HS ##0 10/20/23
furosemide 40 mg tablet (Lasix) 40 mg PO DAILY #30 tabs 10/22/23
amoxicillin 500 mg tablet 500 mg PO Q8H 12/04/23
aspirin 500 mg tablet 1,000 mg PO DAILY 12/04/23
lisinopril 5 mg tablet 5 mg PO DAILY 12/04/23
Review of Systems
-
A 12 point ROS was completed and negative except as noted: Yes
Physical Exam
Vital Signs
Vital Signs
Temp Pulse Resp BP Pulse Ox
97.9 F 86 16 102/55 93
12/04/23 16:20 12/04/23 18:14 12/04/23 18:14 12/04/23 18:14 12/04/23 18:14
Physical exam:
General: Awake, alert and oriented x3, not in distress and holds appropriate conversation.
HEENT: No active discharge, ecchymosis or bruising, moist lips, tongue and mucous membrane.
Eyes: No discharge or red conjunctiva, no nystagmus, pupils are reactive and equal
Neck:Supple, no JVD no bruit no goiter.
Respiratory: Normal AP contour and diameter, normal chest wall movement, normal respiratory effort, no respiratory distress,
Lungs: Good air entry bilaterally, no wheezing or rhonchi, no rales or crackles
Heart: S1, S2 regular, normal rate, no added sound.
Gastrointestinal: Positive bowel sounds, soft, nontender, no guarding or rigidity or organomegaly
Musculoskeletal: Posterior cath in the left arm, good range of motion of the left hand and fingers, mild painful swelling and tenderness of the right knee,, no chest wall abnormality or tenderness. All other joints and extremities have good range
of motion, no muscle tenderness or any joint swelling or tenderness.
Extremities: No pitting edema, good peripheral pulses, good range of motion
Skin: Warm and dry, no ulceration, normal color.
Neurological: Awake, alert and oriented x3, hearing impairment appreciated, pleasant and mildly confused speech clear and comprehensive, good muscle tone, moves extremities fairly good muscle tone
Psychiatric: Normal mood, normal thought and judgment, normal affect,
Physical Exam
HEENT: Moist mucous membranes
Laboratory Results
-
12/04/23 16:59
12/04/23 16:59
Laboratory Results
Total Bilirubin 0.7 mg/dl (0.2-1.3) 12/04/23 16:59
AST 42 U/L (14-36) H 12/04/23 16:59
ALT 22 U/L (0-35) 12/04/23 16:59
Alkaline Phosphatase 87 U/L (38-126) 12/04/23 16:59
Left arm x-ray showed oblique fracture of the left humerus with mild displacement and a posterior splint on.
Right knee x-ray: Showed nondisplaced fracture of the distal end of platelet,
Both x-ray pending official report, please refer to the report once available and read by radiologist.
Data Reviewed
-
Diagnostic Radiology: Image Personally Visualized and interpreted, Discussed with Nurse, Discussed with Patient and Discussed with Family
Lab Data: Labs Reviewed by me, Discussed with Patient and Discussed with Family
Old Records: Reviewed
Impression/Plan
-
IMPRESSION:
78-year-old female with history of hypertension, had a mechanical fall yesterday and went to [facility] where she was diagnosed with a left humeral fracture, noticed by the family today that she cannot do anything for herself as she lives
alone, seen by PT and recommendation for placement now. Also x-ray showed right patellar nondisplaced fracture.
Mechanical fall
Right humeral fracture
Right patellar fracture
Hypertension
History of COPD, stage
Chronic systolic congestive heart failure EF around 40-45 per
PLAN:
PT OT and fall precaution
Plan for placement for now
Pain medication with oxycodone
Tylenol for mild pain
Continue albuterol as needed
Fluid restriction
Continue Lasix and lisinopril.
Her pressure on the low side and he is not on beta-bk, will monitor heart rate if heart rate and pressure allows he may benefit from low-dose of beta-kb like carvedilol for CHF.
All discussed with the patient and the daughter and she is agreeing on placement for now
Discussed with the ER physician
CODE STATUS full code
DVT prophylaxis Lovenox
[2023-12-04 20:01] VITALS: BP 145/57
[2023-12-04] MEDS: LOVENOX 40 MG SC (20:24)
[2023-12-04] MEDS: MELATONIN 20 MG PO (22:28)
[2023-12-04] MEDS: NON-FORMULARY ITEM 1 UNIT PO (22:29)
[2023-12-04 23:30] VITALS: BP 122/51
[2023-12-05] MEDS: ROXICODONE 5 MG PO ×4 (03:54→22:04)
--- NOTE | 2023-12-05 05:37 | PTCARENOTE ---
Pt has own ABX in drawer from recent root canal on lower right jaw. She has a few days left to complete. Amoxicillin 500mg TID
[2023-12-05 07:15] VITALS: BP 143/59
[2023-12-05] MEDS: TYLENOL 1000 MG PO ×3 (08:07→21:16)
[2023-12-05] MEDS: NON-FORMULARY ITEM 1 UNIT PO ×3 (08:08→21:13)
[2023-12-05] MEDS: VITAMIN D3 (cholecalciferol) 25 MCG PO (08:08)
[2023-12-05] MEDS: LASIX 40 MG PO (08:08)
[2023-12-05] MEDS: ZESTRIL 5 MG PO (08:08)
[2023-12-05] MEDS: DUONEB 3 ML INH ×3 (09:03→20:02)
--- NOTE | 2023-12-05 10:32 | W.PN.HOSP.TC ---
Addendum entered and electronically signed by Arturo Glass MD 12/05/23 13:28:
addendum
D/W daughter, Code status, pt is DNR
End
Original Note:
Today's Communication/Plan
-
.
Assessment / Plan
Assessment / Plan
Physical exam:
General: Awake, alert and oriented x3, not in distress and holds appropriate conversation.
HEENT: No active discharge, ecchymosis or bruising, moist lips, tongue and mucous membrane.
Eyes: No discharge or red conjunctiva, no nystagmus, pupils are reactive and equal
Neck:Supple, no JVD no bruit no goiter.
Lungs limited with few expiratory wheezes, mostly at bases.
Heart: S1, S2 regular,
Gastrointestinal: Positive bowel sounds, soft, nontender, no guarding or rigidity
Musculoskeletal: Dressing of the left arm, mild painful swelling and tenderness of the right knee.
Extremities: No pitting edema, good peripheral pulses, good range of motion
Skin: Warm and dry, no ulceration, normal color.
Neurological: Awake, alert and oriented x3, hearing impairment appreciated, pleasant and mildly confused speech clear and comprehensive, good muscle tone, moves extremities fairly good muscle tone
Psychiatric: Normal mood, normal thought and judgment, normal affect.
78-year-old female with history of hypertension, had a mechanical fall and went to [facility] ER where she was diagnosed with a left humeral fracture and dc home. Family noticed that she was unable to stay at home alone. Also x-ray showed
right patellar nondisplaced fracture.
Mechanical fall
Right humeral fracture
Right patellar fracture
Change pain control regimen to Tylenol 1000 mg TID, c/w PRN Oxycodone
DVT prophylaxis
Non operable fractures per report , will d/w ortho
f/w PT/OT
Appreciate ortho input
# Primary Hypertension
Avoid hypotension
No headache or chest pain
# History of COPD, acute exacerbation
She has wheezes this morning on exam. Mild exacerbation. Will avoid systemic steroid while fractures in process of healing and will try Nebulizer TID and Pulmicort Neb. If no improvement, then we can try Systemic steroid.
# chronic HFrEF EF around 40-45 per
Fluid restriction
Continue Lasix and lisinopril.
# Obesity due to excess calorie consumption
BMI 31
Weight loss recommended
# History of osteoarthritis
And takes high doses of aspirin at home.
Outpatient records, 500 mg every 6 hours as needed but patient was taking it regularly. Will hold aspirin for now.
DVT prophylaxis Lovenox
Total time spent to see the patient, examine the patient, review data and lab results, discuss treatment plan with patient, nursing staff around 55 minutes
Anticipated Discharge: 24 - 48 hours
Subjective/Interval History
-
Date of Service: December 05, 2023
She has pain in her left arm
She reports dry cough and some dry throat
Objective Data
-
Vital Signs:
Vital Signs
Temp Pulse Resp BP Pulse Ox
98.4 F 74 16 143/59 94
12/05/23 07:15 12/05/23 09:05 12/05/23 09:05 12/05/23 07:15 12/05/23 09:05
--- NOTE | 2023-12-05 10:44 | CM ---
Addendum entered by Mati Ayala 12/05/23 14:49:
Admission switched from OBS to Inpatient.
IMM reviewed, placed on chart, pt has a copy.
PT and OT recommend SNF level of care. CM met with pt and two patients daughter present at bedside. pt's daughter expressed their very unhappy feelings regarding pt was admitted with OBS.Pt's daughters stated that pt cannot return back home and she
must to go to a SNF for a short term rehab. CM explained to the pt and her daughters Medicare Rules and regulations and they expressed their understanding.
A list of SNFs provided to the pt and her daughters.
Both pt and her daughters requested following SNFs: [facility], [facility] and [facility].
A referral to above SNFs made.
D/C plan: Preferred SNF.
CM will follow to assist pt with discharge to a preferred SNF.
Original Note:
CM following re: discharge planning.
Reviewed pt's chart, met with pt.
Pt is a 78 year old female, admitted with OBS status and primary dx og Humerus fx. OBS status explained to the pt, pt expressed her understanding, PADRON letter signed, placed on chart, pt has a copy.
Pt reports she lives alone in a trailer, 2 steps to enter, has 3 children and they live out of state. Pt stated her daughter from [place] is here to help. Pt reports she uses a cane and a walker, known to [facility]. Pt expressed her desire to
return back home at discharge with [facility] and family support.
PT and OT will evaluate the pt to determine a level of care at discharge.
PCP: Justyn Lin
Pharmacy: [facility].
D/C plan: pt feels she will return back home with [facility] and family support.
CM will follow with discharge plan updates as hospitalization progresses
--- NOTE | 2023-12-05 10:45 | CON.ORTHO ---
Consultation
-
Date/Time Consultation Requested: 12/04/2023; time unknown
Date/Time Consultation Performed: 12/05/2023; 0900
Requesting Provider: unknown
Performing Provider: Nicki Castañeda PA-C / Dr. Ammon Dixon
Reason for Consultation: Left humerus fracture, Right patella fracture
Consultation - Orthopedics
History
Ms. August is a 78-year-old female past medical history of asthma and hypertension who sustained a fall at home yesterday. She reports she tripped on a vaccum cord and lost her balance. She reports immediate onset of pain in her knee and her left
arm, and was unable to get up off the ground. She does have a home health care nurse who checks on her once a week, and she was there at that time. She was brought to [facility] via EMS where x-rays revealed a left midshaft humerus
fracture and nondisplaced right patella fracture. She is resting comfortably in bed this morning. She reports her left arm is quite painful, but her knee is comfortable at present. She lives independently and typically ambulates with the
assistance of a cane.
Allergies / Home Medications
Allergy/AdvReac Type Severity Reaction Status Date / Time
No Known Allergies Allergy Verified 10/20/23 19:00
�Medication �Instructions �Recorded
albuterol sulfate 90 mcg/actuation 2 puff inhalation R Q4HPRN PRN sob 09/03/23
aerosol inhaler
cholecalciferol (vitamin D3) 25 25 mcg PO DAILY Supplement ##0 09/03/23
mcg (1,000 unit) tablet (Vitamin
D3)
cyanocobalamin (vitamin B-12) 1,000 mcg PO DAILY Supplement ##0 09/03/23
1,000 mcg tablet (Vitamin B-12)
melatonin 10 mg tablet 20 mg PO HS Sleep ##0 10/20/23
furosemide 40 mg tablet (Lasix) 40 mg PO DAILY #30 tabs 10/22/23
amoxicillin 500 mg tablet 500 mg PO Q8H Infection 12/04/23
aspirin 500 mg tablet 1,000 mg PO DAILY 12/04/23
lisinopril 5 mg tablet 5 mg PO DAILY Blood Pressure 12/04/23
Vital Signs / Lab Results
Temp Pulse Resp BP Pulse Ox
98.4 F 74 16 143/59 94
12/05/23 07:15 12/05/23 09:05 12/05/23 09:05 12/05/23 07:15 12/05/23 09:05
12/04/23 16:59
12/04/23 16:59
XR Right Knee FINDINGS/IMPRESSION:
There is a fracture through the inferior aspect of the patella.
There is a small joint effusion. There is soft tissue swelling anterior to the patella and in the prepatellar space. No other fracture identified. There is no dislocation.
XR Left Humerus FINDINGS/IMPRESSION:
There is an oblique fracture of the proximal third of the left humerus, with distraction of the fracture fragments of approximately 8 mm. Overlying cast material obscures fine detail.
Directed exam of the left upper extremity reveals splint and WINSTON qrap in place. Ecchymosis and edema throughout the left upper extremity. Tenderness to palpation about the upper arm. ROM deferred. Patient able to extend thumb and wrist. Sensation
intact to light touch throughout. Capillary refill <2 seconds.
Directed exam of the right knee reveals a large effusion. Tenderness to palpation about the distal pole of the patella. ROM deferred secondary to known fracture. Calf soft and nontender. Neurovascularly intact distally.
Assessment / Plan
Left midshaft humerus fracture, Right transverse patella fracture
--Unfortunately, Talita sustained fractures of both her left midshaft humerus and her right patella. Thankfully, both of these fractures remain in appropriate alignment to proceed with non-operative management. In regards to her left arm, I have
placed a consult for Awilda for patient to receive Gonzalez brace. She should remain NWB to her left upper extremity. Her radial nerve function is intact, and I would recommend continued close monitoring. In regards to her right knee, she should
remain in her knee immobilizer at all time. No flexion of the knee. She may be weight bearing as tolerated to her right lower extremity in her knee immobilizer. We appreciate the assistance of PT/OT. Pain control per primary. Ice and elevation for
pain and edema control. She may follow up with us next week for repeat evaluation, and x-rays for position check of both fractures. Orthopedics will sign off for now. Please reach out with any additional orthopedic questions or concerns.
[2023-12-05 12:49] VITALS: BP 126/55
[2023-12-05 13:01] VITALS: BP 126/55
[2023-12-05 16:09] VITALS: BP 160/58
[2023-12-05] MEDS: LOVENOX 40 MG SC (17:31)
[2023-12-05] MEDS: PULMICORT 0.5 MG INH (20:02)
[2023-12-05] MEDS: MELATONIN 20 MG PO (21:08)
[2023-12-05 23:13] VITALS: BP 133/61
[2023-12-06 04:21] VITALS: BMI 31.4
[2023-12-06] MEDS: ROXICODONE 5 MG PO (04:22)
[2023-12-06 05:08] LABS: Hematocrit 30.8 % (37.0-47.0); Hemoglobin 10.1 g/dL (12.0-16.0); Mean Corp Hgb Conc. 32.8 g/dL (33.0-37.0); Mean Corpuscular Hgb 30.1 pg (27.0-31.0); Mean Corpuscular Volume 91.9 fL (81.0-99.0); Mean Platelet Volume 10.9 fL (7.4-10.4); Platelet Count 207 10^3/uL (130-400); Red Blood Cell Count 3.35 10^6/uL (4.20-5.40); Red Cell Dist. Width 14.1 % (11.5-14.5); White Blood Cell Count 6.9 10^3/uL (4.8-10.8)
[2023-12-06 05:31] LABS: Blood Urea Nitrogen 34 mg/dl (7-17); Carbon Dioxide 26 mmol/L (22-30); Chloride 106 mmol/L (98-107); Estimated Creatinine Clearance 33 ml/min; Glucose 106 mg/dl (70-99); Potassium 4.3 mmol/L (3.5-5.1); Sodium 135 mmol/L (135-145); eGFR 46.33
[2023-12-06] MEDS: PULMICORT 0.5 MG INH ×2 (07:39→20:01)
[2023-12-06 07:40] VITALS: BP 142/54
[2023-12-06] MEDS: DUONEB 3 ML INH ×3 (07:40→20:01)
[2023-12-06] MEDS: TYLENOL 1000 MG PO ×3 (08:44→21:50)
[2023-12-06] MEDS: NON-FORMULARY ITEM 1 UNIT PO ×3 (08:45→21:49)
[2023-12-06] MEDS: ZESTRIL 5 MG PO (08:45)
[2023-12-06] MEDS: LASIX 40 MG PO (08:45)
[2023-12-06] MEDS: VITAMIN D3 (cholecalciferol) 25 MCG PO (08:45)
[2023-12-06] MEDS: SENOKOT-S 1 TABLET PO (08:51)
[2023-12-06] MEDS: MIRALAX 17 GRAMS PO (08:51)
[2023-12-06 10:40] VITALS: BP 132/53; PULSE 93
--- NOTE | 2023-12-06 11:50 | PTCARENOTE ---
1145: Patient told RN that the WINSTON bandage on arm feels like it is digging into arm. RN notified Grazyna
--- NOTE | 2023-12-06 11:50 | PTCARENOTE ---
1145: patient told RN that bandage on arm feels like it is 'digging into skin and cutting off circulation.' Neurovascular assessment completed and WNL. RN notified Nicki SCOTT about patients concerns. Nicki stated for RN to take neris bandage off
and to rewrap it. Patient stated that it 'still feels the same'. Patient was moving arm and was educated by RN that arm needs to be immobilized. Nicki SCOTT made aware. Care ongoing.
--- NOTE | 2023-12-06 14:11 | W.PN.HOSP.TC ---
Today's Communication/Plan
-
pain control
oob/pt/ot
eventual SNF
trend cr
Assessment / Plan
Assessment / Plan
Physical exam:
General: Awake, alert and oriented x3, not in distress and holds appropriate conversation.
HEENT: No active discharge, ecchymosis or bruising, moist lips, tongue and mucous membrane.
Eyes: No discharge or red conjunctiva, no nystagmus, pupils are reactive and equal
Neck:Supple, no JVD no bruit no goiter.
Lungs limited with few expiratory wheezes, mostly at bases.
Heart: S1, S2 regular,
Gastrointestinal: Positive bowel sounds, soft, nontender, no guarding or rigidity
Musculoskeletal: Dressing of the left arm, mild painful swelling and tenderness of the right knee.
Extremities: No pitting edema, good peripheral pulses, good range of motion
Skin: Warm and dry, no ulceration, normal color.
Neurological: Awake, alert and oriented x3, hearing impairment appreciated, pleasant and mildly confused speech clear and comprehensive, good muscle tone, moves extremities fairly good muscle tone
Psychiatric: Normal mood, normal thought and judgment, normal affect.
78-year-old female with history of hypertension, had a mechanical fall and went to [facility] ER where she was diagnosed with a left humeral fracture and dc home. Family noticed that she was unable to stay at home alone. Also x-ray showed
right patellar nondisplaced fracture.
#Mechanical fall
#Left humeral fracture
#Right patellar fracture
Change pain control regimen to Tylenol 1000 mg TID, c/w PRN Oxycodone
DVT prophylaxis
Non operable fractures per ortho
f/w PT/OT
Appreciate ortho input
# Primary Hypertension
Avoid hypotension
No headache or chest pain
# History of COPD, acute exacerbation
Mild exacerbation. Will avoid systemic steroid while fractures in process of healing and will try Nebulizer TID and Pulmicort Neb. If no improvement, then we can try Systemic steroid.
# chronic HFrEF EF around 40-45 per
Fluid restriction
hold Lasix and lisinopril.
# Obesity due to excess calorie consumption
BMI 31
Weight loss recommended
#Elevated Cr
-Monitor Cr for now.
-Hold diuretics/acei for now
-?due t high dose aspirin
-repeat labs in am. If persistently elevated check urine studies
# History of osteoarthritis
And takes high doses of aspirin at home.
Outpatient records, 500 mg every 6 hours as needed but patient was taking it regularly. Will hold aspirin for now.
DVT prophylaxis Lovenox
PT/OT-SNF once medically ready.
Anticipated Discharge: > 48 hours
Subjective/Interval History
-
Date of Service: December 06, 2023
States of some tightness at the Hamilton wrap site
denies any numbing or tingling in the left upper extremity
Objective Data
-
Labs:
Laboratory Results
12/06/23
04:53
WBC 6.9
Hgb 10.1 L
Hct 30.8 L
Plt Count 207
Sodium 135
Potassium 4.3
Chloride 106
Carbon Dioxide 26
BUN 34 H
Creatinine 1.2 H
Glucose 106 H
Calcium 10.0
Vital Signs:
Vital Signs
Temp Pulse Resp BP Pulse Ox
99.3 F 96 16 142/54 93
12/05/23 23:13 12/06/23 13:54 12/06/23 13:54 12/06/23 08:45 12/06/23 07:42
I&O
12/05/23 12/06/23 12/07/23
06:59 06:59 06:59
Intake Total 1500 / 1500
Balance 1500 / 1500
Data Reviewed
-
Total Time Spent with Patient (in minutes): 55
--- NOTE | 2023-12-06 14:42 | CM ---
manager market research reviewed patient's chart and met with patient and patient and spoke with patient's daughter Liv and friend Debby today. Per family they would [facility] in [place], [place], [facility], [facility], and [facility] in
[place], per family [facility] is too far from them.
Plan; To follow up with skilled placement for patient.
[2023-12-06 15:39] VITALS: BP 142/64
[2023-12-06] MEDS: LOVENOX 40 MG SC (18:00)
[2023-12-06] MEDS: MUCINEX 600 MG PO (21:49)
[2023-12-06] MEDS: MELATONIN 20 MG PO (21:49)
[2023-12-06 23:05] VITALS: BP 105/43
[2023-12-07 06:00] VITALS: BMI 31.6
[2023-12-07 07:00] VITALS: BP 126/71
[2023-12-07] MEDS: PULMICORT 0.5 MG INH ×2 (07:29→20:01)
[2023-12-07] MEDS: DUONEB 3 ML INH ×3 (07:29→20:01)
[2023-12-07] MEDS: MUCINEX 600 MG PO ×2 (08:21→19:52)
[2023-12-07] MEDS: TYLENOL 1000 MG PO ×3 (08:21→21:58)
[2023-12-07] MEDS: VITAMIN D3 (cholecalciferol) 25 MCG PO (08:21)
[2023-12-07 08:53] LABS: Blood Urea Nitrogen 24 mg/dl (7-17); Calcium 10.6 mg/dl (8.4-10.2); Carbon Dioxide 26 mmol/L (22-30); Chloride 107 mmol/L (98-107); Estimated Creatinine Clearance 40 ml/min; Glucose 100 mg/dl (70-99); Sodium 137 mmol/L (135-145); eGFR 57.66
--- NOTE | 2023-12-07 12:18 | W.PN.HOSP.TC ---
Today's Communication/Plan
-
await specialized brace
pain control
restart diuretics
SNF in am
Assessment / Plan
Assessment / Plan
Physical exam:
General: Awake, alert and oriented x3, not in distress and holds appropriate conversation.
HEENT: No active discharge, ecchymosis or bruising, moist lips, tongue and mucous membrane.
Eyes: No discharge or red conjunctiva, no nystagmus, pupils are reactive and equal
Neck:Supple, no JVD no bruit no goiter.
Lungs limited with few expiratory wheezes, mostly at bases.
Heart: S1, S2 regular,
Gastrointestinal: Positive bowel sounds, soft, nontender, no guarding or rigidity
Musculoskeletal: Left upper extremity and slight and left arm with Hamilton wrap. Right lower extremity with knee immobilizer
Extremities: No pitting edema, good peripheral pulses, good range of motion
Skin: Warm and dry, no ulceration, normal color.
Neurological: Awake, alert and oriented x3, hearing impairment appreciated, pleasant and mildly confused speech clear and comprehensive, good muscle tone, moves extremities fairly good muscle tone
Psychiatric: Normal mood, normal thought and judgment, normal affect.
78-year-old female with history of hypertension, had a mechanical fall and went to [facility] ER where she was diagnosed with a left humeral fracture and dc home. Family noticed that she was unable to stay at home alone. Also x-ray showed
right patellar nondisplaced fracture.
#Mechanical fall
#Left humeral fracture
#Right patellar fracture
Change pain control regimen to Tylenol 1000 mg TID, c/w PRN Oxycodone
DVT prophylaxis
Non Weight bearing to left upper extremity.
Also 'she should remain in her knee immobilizer at all time. No flexion of the knee. She may be weight bearing as tolerated to her right lower extremity in her knee immobilizer.'
Non operable fractures per ortho
f/w PT/OT
Appreciate ortho input
# Primary Hypertension
Avoid hypotension
No headache or chest pain
# History of COPD, acute exacerbation
Mild exacerbation. Will avoid systemic steroid while fractures in process of healing and will try Nebulizer TID and Pulmicort Neb. If no improvement, then we can try Systemic steroid.
# chronic HFrEF EF around 40-45 per
Fluid restriction
restart Lasix and lisinopril.
# Obesity due to excess calorie consumption
BMI 31
Weight loss recommended
#Elevated Cr
-Monitor Cr for now.
-Hold diuretics/acei for now
-?due t high dose aspirin
-Improved and restart lasix/acei.
# History of osteoarthritis
And takes high doses of aspirin at home.
Outpatient records, 500 mg every 6 hours as needed but patient was taking it regularly. Will hold aspirin for now.
DVT prophylaxis Lovenox
PT/OT-SNF once medically ready. SNF in am.
Anticipated Discharge: Within 24 hours
Subjective/Interval History
-
Date of Service: December 07, 2023
States overall left shoulder discomfort
Still frustrated with delay in receiving specialized sling
Objective Data
-
Labs:
Laboratory Results
12/07/23
08:23
Sodium 137
Potassium 4.0
Chloride 107
Carbon Dioxide 26
BUN 24 H
Creatinine 1.0
Glucose 100 H
Calcium 10.6 H
Vital Signs:
Vital Signs
Temp Pulse Resp BP Pulse Ox
98.3 F 84 16 126/71 91
12/07/23 07:00 12/07/23 07:32 12/07/23 07:32 12/07/23 07:00 12/07/23 07:32
I&O
12/06/23 12/07/23 12/08/23
06:59 06:59 06:59
Intake Total 1500 / 1500 1020 / 1020
Balance 1500 / 1500 1020 / 1020
Data Reviewed
-
Total Time Spent with Patient (in minutes): 55
--- NOTE | 2023-12-07 12:25 | W.PN.UPDATE ---
Update Note
Progress Note Update
I stopped by and saw this patient this afternoon. She has not been tolerating the symptoms from her humeral shaft fracture. We again discussed options, and she is interested in pursuing operative intervention of her fracture. Given that she is
already having a difficulty time tolerating her symptoms, I am not sure how much she will improve after receiving her Gonzalez brace. Open reduction internal fixation left humerus fracture was discussed. The risks, benefits, alternative, recovery
process and potential complications were all reviewed, and she would like to proceed with surgical intervention. We will tentatively plan for this on Wednesday (12/14/2023) under the direction of Dr. Mcdonough. Thankfully, she is NVID on exam and does
not have a wrist drop. She should remain NWB to her LUE.
[2023-12-07 15:00] VITALS: BP 132/62
[2023-12-07 15:21] VITALS: BP 131/74; PULSE 92; O2SAT 94
--- NOTE | 2023-12-07 16:07 | CM ---
rehabilitation program manager reviewed patient's chart and spoke with patient's daughter Liv, and plan is for patient to transfer to [facility] in [facility], bed is available tomorrow per Nadira [phone], per physician patient is for possible orthopedic
surgery next week.
[facility] in [place]
Report [phone]
[2023-12-07] MEDS: LOVENOX 40 MG SC (17:01)
[2023-12-07] MEDS: MELATONIN 20 MG PO (21:58)
[2023-12-07] MEDS: ROXICODONE 5 MG PO (22:56)
[2023-12-07 23:13] VITALS: BP 122/47
[2023-12-08 06:00] VITALS: BMI 31.4
[2023-12-08 07:00] VITALS: BP 165/88
--- NOTE | 2023-12-08 07:39 | W.PN.UPDATE ---
Update Note
Progress Note Update
Ms. August is resting comfortably in bed this morning. She reports overall she was comfortable overnight on her current pain management regimen. We will plan to proceed with OR on 12/13 for ORIF midshaft humerus fracture under the direction of .
Sharonda. This will be performed on an outpatient basis. She will follow up with me in this office this Wednesday at [address] in [place].
Splint in place to LUE. Generalized edema throughout the left hand. Radial nerve function intact. NVID.
Knee immobilizer in place to RLE. Calf soft and nontender. Patient able to wiggle toes, plantar and dorsiflex ankle. NVID.
Continue NWB to LUE. Splint in place. May utilize Gonzalez if delivered prior to discharge.
Continue WBAT with RLE in knee immobilizer. No flexion of the knee.
Continue pain control per primary.
DVT ppx per primary.
[2023-12-08] MEDS: LASIX PO (07:47)
[2023-12-08] MEDS: MUCINEX 600 MG PO (07:48)
[2023-12-08] MEDS: TYLENOL 1000 MG PO (07:48)
[2023-12-08] MEDS: VITAMIN D3 (cholecalciferol) 25 MCG PO (07:48)
[2023-12-08] MEDS: ZESTRIL PO (07:51)
[2023-12-08] MEDS: DUONEB 3 ML INH ×2 (08:29→13:18)
[2023-12-08] MEDS: PULMICORT 0.5 MG INH (08:29)
[2023-12-08] MEDS: VITAMIN B-12 1000 MCG PO (08:57)
[2023-12-08] MEDS: LASIX 40 MG PO (08:58)
[2023-12-08] MEDS: ZESTRIL 5 MG PO (08:58)
[2023-12-08] MEDS: ROXICODONE 5 MG PO (10:51)
--- NOTE | 2023-12-08 10:51 | W.PN.HOSP.TC ---
Today's Communication/Plan
-
dc to SNF.
Assessment / Plan
Assessment / Plan
78-year-old female with history of hypertension, had a mechanical fall and went to [facility] ER where she was diagnosed with a left humeral fracture and dc home. Family noticed that she was unable to stay at home alone. Also x-ray showed
right patellar nondisplaced fracture.
#Mechanical fall
#Left humeral fracture
#Right patellar fracture
Change pain control regimen to Tylenol 1000 mg TID, c/w PRN Oxycodone
DVT prophylaxis
Non Weight bearing to left upper extremity.
Also 'she should remain in her knee immobilizer at all time. No flexion of the knee. She may be weight bearing as tolerated to her right lower extremity in her knee immobilizer.'
Plan for OP ortho f/u for pre-op management with plan for Left humerus surgery as Op next week.
Appreciate ortho input
# Primary Hypertension
Avoid hypotension
No headache or chest pain
# History of COPD, acute exacerbation
BC. resolved.
# chronic HFrEF EF around 40-45 per
Fluid restriction
restart Lasix and lisinopril.
# Obesity due to excess calorie consumption
BMI 31
Weight loss recommended
#Elevated Cr
-Monitor Cr for now.
-Hold diuretics/acei for now
-?due t high dose aspirin
-Improved and restart lasix/acei.
# History of osteoarthritis
And takes high doses of aspirin at home.
Outpatient records, 500 mg every 6 hours as needed but patient was taking it regularly. dc asa
DVT prophylaxis Lovenox continued on dc at SNF till surgery
PT/OT-dc to snf. cm aware.
More than 30 minutes spent in discharge including
Final examination of the patient
Summarizing hospital stay
Instructions for continuing care to all relevant caregivers
Preparation of discharge records, prescriptions, and referral forms
Total time spent (in minutes): 52
Anticipated Discharge: Today
Subjective/Interval History
-
Date of Service: December 08, 2023
watching series on laptop
comfortable in chair
Objective Data
-
Vital Signs:
Vital Signs
Temp Pulse Resp BP Pulse Ox
98.0 F 86 16 165/88 91
12/08/23 07:00 12/08/23 08:34 12/08/23 08:34 12/08/23 07:00 12/08/23 08:34
I&O
12/07/23 12/08/23 12/09/23
06:59 06:59 06:59
Intake Total 1020 / 1020 420 / 420
Balance 1020 / 1020 420 / 420
Physical Exam
-
General: Well Developed, Well Nourished and No Apparent Distress
HEENT: Normocephalic, Atraumatic and Moist Mucous Membranes
Respiratory: Non Labored Respirations
GI: Nondistended
Musculoskeletal: Other (LUE in sling. RLE in knee immobilizer. No swelling of left hand. )
Neuro: Awake and No Motor Deficits
Psych: Calm
--- NOTE | 2023-12-08 13:07 | CM ---
CM reviewed pt with Dr Melo and pt ready
Multiples calls with dtr to review dc planning
No beds at [facility], bed offered at [facility]
Dtr would like [facility] on dc
Transportation discussed- pt does not qualify for an ambulance
[facility] van discussed and offered
Family declined fees
Arrangements have been made for family friend to transport pt to [facility]
Arrival between 2:30-3Pm friend/Mamie [phone]
Bedside update to pt
IMM verbally reviewed- copy provided
Discharge Disposition- [facility] via friend transport
Phone- [phone] Fax- [phone]
--- NOTE | 2023-12-08 13:32 | W.DCSUMMARY ---
Discharge Summary
Discharge Data
Date of Admission: 12/05/23
Date of Discharge: 12/08/23
-
Pending Results: No
Hospital Course
78-year-old female past medical history of COPD, chronic HFrEF, obesity, arthritis was presenting after mechanical fall. Patient has outpatient was found to the left humeral fracture. Patient was also found to have right patella fracture. Patient
was eval by orthopedic. Patient with severe pain. Patient required pain control with oxycodone. Patient right lower extremity will be knee immobilizer and no surgery required. Patient with persistent severe left upper extremity pain and plan
will be for outpatient surgery for left humerus fracture. Patient with mild laboratory creatinine which downtrended. Patient was eval by PT and OT will be discharged to detention facility.
Discharge Plan
-
Patient Disposition: Senior Living/SNF
Discharge Diagnosis/Procedures: Mechanical fall
Left humeral fracture
Right patellar fracture
Condition: Fair
Diet: 2 Gram Sodium and Restrict fluids to 48 oz
Activity: With assistance
Additional Activity: Non Weight bearing to left upper extremity.
Also 'she should remain in her knee immobilizer at all time. No flexion of the knee. She may be weight bearing as tolerated to her right lower extremity in her knee immobilizer.'
Driving Restrictions: No driving
Activity Restrictions/Additional Instructions:
We will tentatively plan for left shoulder surgery on Wednesday (12/14/2023) under the direction of Dr. Mcdonough.
Referrals:
Nicki Castañeda PA-C [Specified Professional Personl] - 12/10/23 10:45 am
Justyn Lin DO [Family Provider] - in less than 1 week
Prescriptions:
New
ipratropium-albuterol 0.5 mg-3 mg(2.5 mg base)/3 mL Solution For Nebulization
3 ml inhalation R TID PRN (Reason: shortness of breath or wheezing) Qty: 180 0RF
acetaminophen [Tylenol Extra Strength] 500 mg Tablet
1,000 mg PO TID Qty: 30 0RF
budesonide 0.5 mg/2 mL Suspension For Nebulization
0.5 mg inhalation R BID 30 Days Qty: 120 0RF
oxycodone 5 mg Tablet
5 mg PO Q4HPRN PRN (Reason: moderate pain) Qty: 15 0RF
enoxaparin [Lovenox] 40 mg/0.4 mL syringe
40 mg SC DAILY Qty: 4 0RF
Rx Instructions:
cont till surgery
Continued
cyanocobalamin (vitamin B-12) [Vitamin B-12] 1,000 mcg Tablet
1,000 mcg PO DAILY Qty: 0
albuterol sulfate 90 mcg/actuation Hfa Aerosol Inhaler
2 puff INHALATION R Q4HPRN PRN (Reason: sob)
cholecalciferol (vitamin D3) [Vitamin D3] 25 mcg (1,000 unit) Tablet
25 mcg PO DAILY Qty: 0
melatonin 10 mg Tablet
20 mg PO HS Qty: 0
furosemide [Lasix] 40 mg tablet
40 mg PO DAILY Qty: 30 0RF
lisinopril 5 mg tablet
5 mg PO DAILY
Discontinued
amoxicillin 500 mg tablet
500 mg PO Q8H
aspirin 500 mg Tablet
1,000 mg PO DAILY
Discharge Orders:
Discharge Patient (As Directed); Ordered 12/08/23
Ordered By: Jovani Melo
Discharge Date and Time
Print Language: GERMAN
[2023-12-08 13:57] VITALS: BP 125/68
== END 2023-12-08 14:22 | DRG 563 ==
LOC: 2 SOUTH 11:33
PROVIDERS: Internal Medicine; ADMITTING PHYSICIAN Internal Medicine; ATTENDING PHYSICIAN Hospitalist; CONSULT PHYSICIAN Orthopaedic Surgery; EMERGENCY PHYSICIAN Emergency Medicine; FAMILY PHYSICIAN Family Medicine
DX: S42.342A Displaced spiral fracture of shaft of humerus, left arm, initial encounter for closed fracture (principal); S82.031A Displaced transverse fracture of right patella, initial encounter for closed fracture; J44.0 Chronic obstructive pulmonary disease with (acute) lower respiratory infection; I50.22 Chronic systolic (congestive) heart failure; I11.0 Hypertensive heart disease with heart failure; E78.00 Pure hypercholesterolemia, unspecified; E66.09 Other obesity due to excess calories; M19.90 Unspecified osteoarthritis, unspecified site; E78.5 Hyperlipidemia, unspecified; W01.0XXA Fall on same level from slipping, tripping and stumbling without subsequent striking against object, initial encounter; Y93.01 Activity, walking, marching and hiking; Y92.009 Unspecified place in unspecified non-institutional (private) residence as the place of occurrence of the external cause; Z66 Do not resuscitate; Z68.31 Body mass index [BMI] 31.0-31.9, adult
CPT/HCPCS: 29505; 73060; 73564; 80048; 80053; 85025; 85027; 94640; 97116; 97163; 97167; 97530; 97535; 99285

== ENCOUNTER 2023-12-13 19:23 | Inpatient (IN) | payer MEDICARE, SELFPAY ==
[2023-12-13 16:16] VITALS: BP 146/55
[2023-12-13 16:50] LABS: % Basophils 0.5 % (0-2); % Eosinophils 3.5 % (0-6); % Immature Granulocytes 0.5 % (0-0.5); % Lymphocytes 17.1 % (20.5-51.1); % Monocytes 5.3 % (1.7-9.3); % Neutrophils 73.1 % (42.2-75.2); Absolute Eosinophils 0.2 10^3/uL (0-0.7); Absolute Lymphocytes 1.1 10^3/uL (1.2-3.4); Absolute Monocytes 0.3 10^3/uL (0.1-0.6); Absolute Neutrophils 4.7 10^3/uL (1.4-6.5); Hematocrit 33.1 % (37.0-47.0); Hemoglobin 10.6 g/dL (12.0-16.0); Mean Corpuscular Hgb 30.4 pg (27.0-31.0); Mean Corpuscular Volume 94.8 fL (81.0-99.0); Mean Platelet Volume 10.4 fL (7.4-10.4); Nucleated Red Blood Cells % 0 %; Platelet Count 299 10^3/uL (130-400); Red Blood Cell Count 3.49 10^6/uL (4.20-5.40); Red Cell Dist. Width 14.3 % (11.5-14.5); White Blood Cell Count 6.4 10^3/uL (4.8-10.8)
[2023-12-13 17:32] LABS: ALT (SGPT) 70 U/L (0-35); AST (SGOT) 42 U/L (14-36); Albumin 3.7 g/dl (3.5-5.0); Alkaline Phosphatase 91 U/L (38-126); Blood Urea Nitrogen 22 mg/dl (7-17); Calcium 9.7 mg/dl (8.4-10.2); Carbon Dioxide 24 mmol/L (22-30); Glucose 131 mg/dl (70-99); Total Bilirubin 0.4 mg/dl (0.2-1.3); Total Protein 6.3 g/dl (6.3-8.2); eGFR > 60.00
[2023-12-13 17:42] LABS: Chloride 106 mmol/L (98-107); Potassium 4.2 mmol/L (3.5-5.1); Sodium 136 mmol/L (135-145)
[2023-12-13 17:59] VITALS: BMI 28.4
--- NOTE | 2023-12-13 18:09 | ED.MUSCINJ ---
HPI-Injury
General
Chief Complaint: Musculo-Skeletal Complaint
Source: patient
Exam Limitations: none
Time Seen by Provider: 12/13/23 17:37
Nursing documentation reviewed up to this point in time: agreed with
Travel History
Have you had any contact with someone who has COVID-19?: No
Do you have any symptoms of coronavirus? Fever > 100 degrees, chills, cough, shortness of breath, sore throat, loss of taste or smell, muscle aches, or headache?: No
History of Present Illness-Injury
Is this injury a work related problem?: No
Is pt an associate of [facility]?: No
Initial Injury comments:
Patient to ED from rehab for admission for medical clearance for ORIF of left humerus tomorrow.
Past History
Past History
ED Past Medical History: Asthma, CHF, COPD (Never formally diagnosed), HTN and Hypercholesterolemia
Social History
Tobacco: Former smoker (Quit 2 days ago 30 cigarettes a day for 65 years)
Drug: None
Living: with family
Employment: Retired
Review of Systems
Review of Systems
Allergies reviewed?: Yes
All Other Systems: ROS reviewed and negative except as documented in HPI and ROS
Constitutional: Reports no symptoms
EENT: Reports no symptoms
Respiratory: Reports no symptoms
Cardiac: Reports no symptoms
ABD/GI: Reports no symptoms
Musculoskeletal: Reports joint pain (Pain to right knee and LUE. Known patella fx, fx of left humerus)
Skin: Reports no symptoms
Neurological: Reports no symptoms
Psychiatric: Reports no symptoms
Phy Exam
General Physical Exam
General Presentation: well appearing and mild distress
General age: appears stated age
General Skin: warm and dry
General Habitus: normal
General Mental: alert
Cardiovascular Exam
Cardiovascular Exam: regular rate/rhythm
Pulmonary Exam
Pulmonary Exam: lungs clear and no respiratory distress
Gastrointestinal Exam
Gastrointestinal Exam: normal bowel sounds, non tender, soft and no organomegaly
Musculoskeletal Exam
Musculoskeletal Exam: neuro vasc intact and other (Right knee immobilizer intact, left upper arm splint intact)
Skin Exam
Skin Exam: normal color, warm/dry and no rash
Psychiatric Exam
Psychiatric Exam: normal mood/affect and agitated
Injury Course
Orders/Labs/Results
Orders:
Orders
12/13/23 Breakfast
Cholesterol Lowering
12/13/23 16:40
Type+Screen Urgent
Complete Blood Count/With Diff Urgent
Comprehensive Metabolic Panel Urgent
Ferritin Urgent
Comment: ADD ON
Folate Urgent
Comment: ADD ON
Iron Urgent
Comment: ADD ON
Total Iron Binding Urgent
Comment: ADD ON
Vitamin B12 Urgent
Comment: ADD ON
12/13/23 18:30
Oxycodone/Acetaminophen [Percocet 5/325] 1 tablet PO NOW STA
12/13/23 18:42
EKG [Electrocardiogram (*1)] Stat
Reason for Study: PreOp
12/13/23 18:43
Add On- LAB Stat
Tests Added?: iron, ferritin, b12, folate, TIBC
CARDIOLOGY CONSULT Routine
Consulting Provider: Elo Ross
Was physician already notified: Yes
12/13/23 18:48
ORTHOPEDIC CONSULT Routine
Consulting Provider: Juventino Mcdonough
Was physician already notified: Yes
12/13/23 18:52
Admit/Transfer Patient As Directed
Co-Sign Provider:
Level of Care: Inpatient admission
Assign to:: Medical/Surgical
Physician / Group: ELAINA
Diagnosis: LEFT HUMERUS FRACTURE
Reason for Hospitalization: LEFT HUMERUS FRACTURE
Expected length of stay greater than two midnights?: Yes
ELOS- Estimated Length of Stay in days: 3
I certify the patient meets the requirements for IP care: Yes
12/13/23 18:53
Code Status As Directed
Resuscitation Status: Do not resuscitate
Reached after discussion with pt or family/Healthcare POA: Yes
DNR Bracelet Application ONCE
12/13/23 19:51
Bisacodyl [Dulcolax] 10 mg RECTAL [id number] PRN
Docusate W/Senna [Senokot-S] 1 tablet PO BIDPRN PRN
Oxycodone [Roxicodone] 5 mg PO Q4HPRN PRN
Polyethylene Glycol Powder [Miralax] 17 grams PO DAILYPRN PRN
12/13/23 19:51
Activity As Directed
Activity Level: Bedrest
Intake/ Output As Directed
Frequency: Per unit guidelines
Pneumatic Compression Sleeves As Directed
Type: Knee high
Vital Signs As Directed
Frequency: Per unit guidelines
Weight As Directed
Frequency: Daily
DX Deep Vein Thrombosis Video Routine
12/14/23 Breakfast
NPO
Allow oral meds: Yes
Allow clear liquids: No
NPO for procedure after (time): 12/13/2023 [id number]
Basic Metabolic Panel IN AM
Cardiovascular Evaluation IN AM
Complete Blood Count/No Diff IN AM
Physical Therapy Consult [Pt Eval And Treat] IN AM
Activity Level: As Tolerated
12/15/23 06:00
Basic Metabolic Panel IN AM
Complete Blood Count/No Diff IN AM
12/16/23 06:00
Basic Metabolic Panel IN AM
Complete Blood Count/No Diff IN AM
12/17/23 06:00
Basic Metabolic Panel IN AM
Complete Blood Count/No Diff IN AM
12/18/23 06:00
Basic Metabolic Panel IN AM
Complete Blood Count/No Diff IN AM
Abnormal Lab Results
12/13/23
16:40
RBC 3.49 L 10^6/uL
(4.20-5.40)
Hgb 10.6 L g/dL
(12.0-16.0)
Hct 33.1 L %
(37.0-47.0)
MCHC 32.0 L g/dL
(33.0-37.0)
Absolute Lymphs (auto) 1.1 L 10^3/uL
(1.2-3.4)
Lymphocytes % 17.1 L %
(20.5-51.1)
BUN 22 H mg/dl
(7-17)
Glucose 131 H mg/dl
(70-99)
TIBC 263 L ug/dl
(265-497)
AST 42 H U/L
(14-36)
ALT 70 H U/L
(0-35)
Vitamin B12 > 1000 H pg/ml
(239-931)
Folate > 20.0 H ng/ml
(2.76-20)
12/13/23 16:40
12/13/23 16:40
*Critical Care Note
Total Time (30-74mins, 75-104mins- exclusive of procedures): Not Applicable
Update Note
Update Note:
Patient sent to ED by Dr. Mcdonough, for OR in AM. ORIF left humerus fx. Patient is admitted to hospitalits service.
ED Attending Note
-
Portions of this chart may have been created with voice recognition software.� Occasional wrong word or��sound alike� substitutions may have occurred due to the inherent limitations of voice recognition software.
Discharge Plan
Departure
Patient Disposition: Admit
Date of Disposition: 12/13/23
Time of Disposition: 18:13
Presentation/result/management discussed w/ accepting MD/DO: Hospitalist
Condition: Fair
Covid-19: Not Applicable
Discharge Problem:
Closed left humeral fracture
Interventions
Interventions:
*Risk Screen - Suicide Last Done: 12/13/23 16:20
*General Assessment Last Done: 12/13/23 16:20
*Neglect/Abuse Screening Last Done: 12/13/23 16:20
ED- Fall Risk Assessment Last Done: 12/13/23 18:01
*ED COVID-19 Vaccine History Last Done: 12/13/23 17:45
*Nursing Disposition Last Done: 12/13/23 19:59
ED-Musculoskeletal Assessment Last Done: 12/13/23 17:59
Discharge Date and Time
Discharge Date/Time: 12/13/23 19:59
[2023-12-13 18:13] VITALS: BP 151/70
--- NOTE | 2023-12-13 18:23 | HPS.HSE ---
Family Physician
-
Family Physician: Justyn Lin
Chief Complaint
-
for ORIF tomorrow
History of Present Illness
78-year-old with past medical history for asthma, congestive heart failure, COPD, hypertension, hyperlipidemia presented to us for medical clearance for ORIF of left humerus tomorrow. Patient tripped over a vacuum cord on 12/04/2023. Patient was
noted to have left humeral and right patella fracture. Patient was sent home, plan to proceed with OR on 12/13 for ORIF admission at home manage fracture under the direction of Dr. Leo. Patient was sent home in left upper extremity splint and
right lower extremity immobilizer. denied CALLAHAN,dizzy or syncopal episode. denied fever, chills,chest desouza, sob. denied abdominal pain, n,v,d . denied dysuria or hematuria.
admitting for further managment.
Medical History
Past Medical History
Past Medical History: Reports Other
Additional Past Medical History:
HTN
asthma
pneumonia
COPD
CHF
Past Surgical History: Reports Other
Additional Past Surgical History:
appendectomy
tonsillectomy
Social History
Tobacco: Non-smoker
Alcohol: None
Drug: None
Personal: Single
Living: Assisted Living
Family History
Family History: Not pertinent
Allergies / Home Medications
Allergies reflects when Allergies were last updated in [facility].
Home Medications with original date entered in [employer]
Allergy/Medication List:
Allergies
Allergy/AdvReac Type Severity Reaction Status Date / Time
No Known Allergies Allergy Verified 12/13/23 16:16
Home Medications
albuterol sulfate 90 mcg/actuation aerosol inhaler 2 puff inhalation R Q4HPRN PRN SOB 09/03/23
cholecalciferol (vitamin D3) 25 mcg (1,000 unit) tablet (Vitamin D3) 25 mcg PO DAILY Supplement ##0 09/03/23
cyanocobalamin (vitamin B-12) 1,000 mcg tablet (Vitamin B-12) 1,000 mcg PO DAILY Supplement ##0 09/03/23
lisinopril 5 mg tablet 5 mg PO DAILY Blood Pressure 12/04/23
budesonide 0.5 mg/2 mL suspension for nebulization 0.5 mg (2 mL) inhalation R BID 30 days #120 mL 12/07/23
oxycodone 5 mg tablet 5 mg PO Q4HPRN PRN moderate pain #15 tabs 12/07/23
acetaminophen 500 mg tablet (Tylenol Extra Strength) 1,000 mg PO TID Pain 12/13/23
benzonatate 100 mg capsule 100 mg PO Q8H PRN COUGH 12/13/23
bisacodyl 10 mg rectal suppository (Dulcolax (bisacodyl)) 10 mg VA PRN PRN CONSTIPATION 12/13/23
enoxaparin 40 mg/0.4 mL subcutaneous syringe (Lovenox) 40 mg SC DAILY DVT Prophy 12/13/23
furosemide 40 mg tablet (Lasix) 40 mg PO DAILY HTN 12/13/23
ipratropium 0.5 mg-albuterol 3 mg (2.5 mg base)/3 mL nebulization soln 3 ml inhalation PRN PRN shortness of breath or wheezing 12/13/23
magnesium hydroxide 400 mg/5 mL oral suspension (Milk of Magnesia) 30 ml PO PRN PRN CONSTIPATION 12/13/23
melatonin 5 mg tablet 5 mg PO HS Sleeplessness 12/13/23
melatonin 5 mg tablet 5 mg PO PRN PRN Sleeplessness 12/13/23
oxycodone 5 mg tablet 5 mg PO BID PRN PAIN 12/13/23
oxycodone 5 mg tablet 5 mg PO Q12H Pain 12/13/23
polyethylene glycol 3350 17 gram/dose oral powder 17 g PO DAILY Constipation 12/13/23
sodium phosphates 1 applic VA PRN PRN CONSTIPATION 12/13/23
Review of Systems
-
Constitutional: Reports No Symptoms
EENT: Reports No Symptoms
Respiratory: Reports No Symptoms
Cardiac: Reports No Symptoms
Abdomen/GI: Reports No Symptoms
: Reports No Symptoms
Musculoskeletal: Reports Other (LUE splint, and RLE on brace)
Skin: Reports No Symptoms
Neurological: Reports No Symptoms
Endocrine: Reports No Symptoms
Hematologic/Lymphatic: Reports No Symptoms
Psych: Reports No Symptoms
Physical Exam
Vital Signs
Vital Signs
Temp Pulse Resp BP Pulse Ox
98.4 F 79 18 146/55 98
12/13/23 16:16 12/13/23 16:16 12/13/23 16:16 12/13/23 16:16 12/13/23 16:16
Physical Exam
General: Well Developed, Well Nourished and No Apparent Distress
HEENT: NormoCephalic, Moist mucous membranes and Atraumatic
Respiratory: Clear
Cardiac: S1/S2 and Regular Rhythm; No Murmur or Rub
GI: Soft, Non Tender, Non Distended and Normal Bowel Sounds; No Organomegaly
Rectal: Deferred by Provider
Musculoskeletal: No Clubbing, No Cyanosis and Other (left hand swelling. LUE splint, and RLE brace)
Skin: No Rash
Neuro: AO x 3 and Nonfocal/grossly intact
Psych: Calm
Laboratory Results
-
12/13/23 16:40
12/13/23 16:40
Laboratory Results
Total Bilirubin 0.4 mg/dl (0.2-1.3) 12/13/23 16:40
AST 42 U/L (14-36) H 12/13/23 16:40
ALT 70 U/L (0-35) H 12/13/23 16:40
Alkaline Phosphatase 91 U/L (38-126) 12/13/23 16:40
Data Reviewed
-
Lab Data: Labs Reviewed by me
Impression/Plan
-
left humerus fracture
-for ORIF tomorrow
-cardiology consulted for pre op clearance
-will keep NPO after MN
-left arm in sling
-ortho consulted
#right patellar fracture
-brace in place
-PT/OT consulted
# Anemia unclear cause
-Hemoglobin 10.6
-No active bleeding
-Continue to trend
-obtain iron panel
# Elevated transaminase
-AST 42, ALT 70
-Continue to monitor
# Primary Hypertension
-BP stable
-lisinopril continued
# History of COPD
-not in acute exacerbation
-nebs from home continued
# chronic HFrEF EF around 40-45
-Fluid restriction
- Lasix and lisinopril continued
# Obesity due to excess calorie consumption
-Weight loss recommended
#DVT prophylaxis
-scd
#CODE status
-DNR
[2023-12-13] MEDS: PERCOCET 5/325 1 TABLET PO (18:36)
--- NOTE | 2023-12-13 18:46 | W.PN.UPDATE ---
Update Note
Progress Note Update
I saw and examined the patient.
The BEDSPREAD CUTTER or PA's note was reviewed and I agree with the note.
Comment: 78-year-old female who presents at the recommendation of her orthopedic surgeon, Dr. Juventino Mcdonough, for planned L humerus ORIF tomorrow. Currently the patient denies chest pain or shortness of breath. She reports that few months ago she
was having dyspnea on exertion with her usual 10-minute walk. This led to hospitalization for acute heart failure with reduced ejection fraction. More recently, prior to her December 03 admission. She felt she could climb a flight of stairs or walk
around a city block without having chest pain or shortness of breath. She denies any weight gain, specifically lower extremity edema.
146/55, 79, 18, 98.4 F, 98% RA
NAD, awake and alert
RRR, normal S1/S2
CTAB anteriorly
CN2-12 intact
No LE edema
L humerus fx:
-plan is for ORIF
-Patient with a recent history of acute heart failure with reduced ejection fraction. Also, in reviewing the documentation, there was concern that the patient would refuse goal-directed medical therapy.
-currently no evidence of decompensated heart failure, no unstable or stable angina, etc.
-will have cardiology see prior to surgery. I suspect the pt is medically optimized for surgery (benefit>risk) but I would like cardiology to assess first.
-discussed with Dr. Mcdonough
[2023-12-13 19:00] VITALS: BP 120/77
[2023-12-13 19:11] LABS: Iron 69 ug/dl (37-170)
[2023-12-13 19:20] LABS: Percent Saturation 26 % (20-50); Total Iron Binding Capacity 263 ug/dl (265-497)
[2023-12-13 19:49] LABS: Ferritin 48.9 ng/ml (11.1-264.0)
[2023-12-13 20:10] VITALS: BP 157/64; BMI 31.5
--- NOTE | 2023-12-13 20:10 | PTCARENOTE ---
Pt arrived onto floor @2009. Pt AAOx3 and able to walk into room with minimal assistance. Pt not complaining of pain at this time. Pt oriented to room and call henry, will continue to monitor
[2023-12-13 20:20] LABS: Folate > 20.0 ng/ml (2.76-20); Vitamin B12 > 1000 pg/ml (239-931)
[2023-12-13 20:21] VITALS: BMI 31.5
[2023-12-13] MEDS: PULMICORT INH (21:30)
[2023-12-13] MEDS: MELATONIN 5 MG PO (21:42)
[2023-12-13 23:05] VITALS: BP 144/68
[2023-12-13] MEDS: ROXICODONE 5 MG PO (23:06)
[2023-12-14] VITALS (10 sets, daily range): BP systolic 88–153; BP diastolic 34–62
[2023-12-14] MEDS: ROXICODONE 5 MG PO ×2 (01:19→04:42)
--- NOTE | 2023-12-14 07:05 | W.PN.UPDATE ---
Update Note
Progress Note Update
Patient has left humeral shaft fracture which will require open reduction internal fixation today after cardiac clearance. Surgical location marked and surgery/blood consent signed by patient. Patient will remain n.p.o. for now. Serena on-call to
the operating room.
[2023-12-14] MEDS: DUONEB 3 ML INH (07:13)
[2023-12-14] MEDS: PULMICORT 0.5 MG INH ×2 (07:13→19:03)
[2023-12-14] MEDS: MIRALAX PO (07:25)
[2023-12-14] MEDS: ZESTRIL 5 MG PO (07:25)
[2023-12-14] MEDS: LASIX 40 MG PO (07:25)
[2023-12-14 08:16] LABS: Hematocrit 32.6 % (37.0-47.0); Hemoglobin 10.7 g/dL (12.0-16.0); Mean Corp Hgb Conc. 32.8 g/dL (33.0-37.0); Mean Corpuscular Hgb 30.4 pg (27.0-31.0); Mean Corpuscular Volume 92.6 fL (81.0-99.0); Mean Platelet Volume 10.6 fL (7.4-10.4); Platelet Count 307 10^3/uL (130-400); Red Blood Cell Count 3.52 10^6/uL (4.20-5.40); Red Cell Dist. Width 14.4 % (11.5-14.5); White Blood Cell Count 7.2 10^3/uL (4.8-10.8)
--- NOTE | 2023-12-14 08:46 | CON.CAR ---
Consultation
Consultation Request
Date/Time Consultation Requested: December 13, 2023
Date/Time Consultation Performed: December 13 8:45 AM 2023
Requesting Provider: hospitalist/surgeon
Performing Provider: Baron Kennedy
Reason for Consultation: Preop cardiovascular exam
Medical History
-
Chief Complaint: broken arm pain
History of Present Illness:
78-year-old female with history of asthma, heart failure reduced ejection fraction chronic EF 40 to 45%, COPD, hypertension, and hyperlipidemia who is here for ORIF of left humerus. She tripped over a vacuum cord on December 04, 2023. Overall, she tells
me that she has no symptoms of ischemia, heart failure, or arrhythmia. If she were not in so much pain she would overall feel well. She lives alone and is able to do all the activities of daily living. It has been a while since she has walked up
a flight of stairs, but she thinks that she would easily be able to do this.
According to the NSQIP risk calculator she is at less than 1% risk of cardiac complication approximately 5% risk of any complication. She has no symptoms as stated above and needs no further testing prior to her procedure.
Past Medical History
Past Medical History: Other (asthma, heart failure reduced ejection fraction chronic EF 40 to 45%, COPD, hypertension, and hyperlipidemia)
Past Surgical History: Other (Appendectomy tonsillectomy)
Social History
Tobacco: Non-Smoker
Alcohol: None
Drug: None
Personal: Single
Living: Assisted Living
Family History
Family History: Reviewed & Not Pertinent
Allergies / Home Medications
Allergy/AdvReac Type Severity Reaction Status Date / Time
No Known Allergies Allergy Verified 12/13/23 16:16
�Medication �Instructions �Recorded �Confirmed �Type
albuterol sulfate 90 mcg/actuation 2 puff inhalation R Q4HPRN PRN SOB 09/03/23 12/13/23 History
aerosol inhaler
cholecalciferol (vitamin D3) 25 25 mcg PO DAILY Supplement ##0 09/03/23 12/13/23 History
mcg (1,000 unit) tablet (Vitamin
D3)
cyanocobalamin (vitamin B-12) 1,000 mcg PO DAILY Supplement ##0 09/03/23 12/13/23 History
1,000 mcg tablet (Vitamin B-12)
lisinopril 5 mg tablet 5 mg PO DAILY Blood Pressure 12/04/23 12/13/23 History
budesonide 0.5 mg/2 mL suspension 0.5 mg (2 mL) inhalation R BID 30 12/07/23 12/13/23 Rx
for nebulization days #120 mL
oxycodone 5 mg tablet 5 mg PO Q4HPRN PRN moderate pain 12/07/23 12/13/23 Rx
#15 tabs
acetaminophen 500 mg tablet 1,000 mg PO TID Pain 12/13/23 12/13/23 History
(Tylenol Extra Strength)
benzonatate 100 mg capsule 100 mg PO Q8H PRN COUGH 12/13/23 12/13/23 History
bisacodyl 10 mg rectal suppository 10 mg GA DAILYPRN PRN CONSTIPATION 12/13/23 12/13/23 History
(Dulcolax (bisacodyl))
chlorhexidine gluconate 4 % 1 applic topical DIRECTED 12/13/23 12/13/23 History
topical liquid (Hibiclens)
enoxaparin 40 mg/0.4 mL 40 mg SC DAILY DVT Prophy 12/13/23 12/13/23 History
subcutaneous syringe (Lovenox)
furosemide 40 mg tablet (Lasix) 40 mg PO DAILY HTN 12/13/23 12/13/23 History
ipratropium 0.5 mg-albuterol 3 mg 3 ml inhalation R Q8HPRN PRN 12/13/23 12/13/23 History
(2.5 mg base)/3 mL nebulization shortness of breath or wheezing
soln
magnesium hydroxide 400 mg/5 mL 30 ml PO DAILYPRN PRN CONSTIPATION 12/13/23 12/13/23 History
oral suspension (Milk of Magnesia)
melatonin 5 mg tablet 5 mg PO DAILYPRN PRN [id number] 12/13/23 12/13/23 History
routine melatonin ineffective
melatonin 5 mg tablet 5 mg PO HS Sleeplessness 12/13/23 12/13/23 History
methocarbamol 500 mg tablet 1,000 mg PO Q8H PRN pain/muscle 12/13/23 12/13/23 History
spasm
oxycodone 5 mg tablet 5 mg PO BID Pain 12/13/23 12/13/23 History
polyethylene glycol 3350 17 17 g PO DAILY Constipation 12/13/23 12/13/23 History
gram/dose oral powder
sodium phosphates 19 gram-7 118 ml GA DAILYPRN PRN constipation 12/13/23 12/13/23 History
gram/118 mL enema (Enema)
Review of Systems
-
All other systems: Negative unless noted
Physical Exam
Vital Signs
Temp Pulse Resp BP Pulse Ox
97.7 F 107 20 124/62 95
12/14/23 07:00 12/14/23 08:27 12/14/23 08:27 12/14/23 07:00 12/14/23 08:27
Lab Results
12/14/23 07:43
Physical Exam
General: Well Developed, Well Nourished and Other (Multiple ecchymoses in various stages of healing)
HEENT: Normocephalic and Moist Mucous Membranes
Respiratory: Clear and Non Labored Respirations
Cardiac: S1/S2 and Regular Rhythm
GI: Soft
Musculoskeletal: No Clubbing and No Edema
Skin: Warm and Dry
Neuro: AO x 3
Hematologic/Lymphatic: No Lymphadenopathy
Psych: Calm
Impression / Plan
-
78-year-old female with history of asthma, heart failure reduced ejection fraction chronic EF 40 to 45%, COPD, hypertension, and hyperlipidemia who is here for ORIF of left humerus.
Preop cardiovascular exam: Talita has no symptoms of ischemia, heart failure, or ischemia. According to the NSQIP risk calculator she is at less than 1% risk of cardiac complication and approximately 5% risk of any complication. She needs no
further testing or medications prior to her surgery.
We will sign off please call with further questions or comments.
Data Reviewed
-
EKG: Tracing Personally Visualized and interpreted (sr )
Medical Tests (Nuc Med, Echo etc): Image Personally Visualized and interpreted (mildly reduced EF )
Labs: Labs Reviewed by me
[2023-12-14 09:07] LABS: Blood Urea Nitrogen 19 mg/dl (7-17); Calcium 9.9 mg/dl (8.4-10.2); Carbon Dioxide 25 mmol/L (22-30); Chloride 105 mmol/L (98-107); Estimated Creatinine Clearance 50 ml/min; Glucose 103 mg/dl (70-99); HDL Cholesterol 57 mg/dl; LDL Cholesterol, Calculated 117 mg/dl; Sodium 138 mmol/L (135-145); Total Cholesterol 231 mg/dl (50-199); Triglyceride 286 mg/dl (10-149); Very Low Density Lipoprotein 57 mg/dl (0-30); eGFR > 60.00
--- NOTE | 2023-12-14 11:10 | W.PN.HOSP.TC ---
Today's Communication/Plan
-
post-op care
Assessment / Plan
Assessment / Plan
Gen: NAD, well developed/nourished
Eyes: EOMI, PERRLA, no scleral icterus.
Neck: supple.
CV: RRR, +S1/S2, no m/r/g.
Resp: CTAB, no rales, wheezes, or rhonchi.
Abd: +BS, soft, NT, ND
Skin: No rashes.
Neuro: CN 2-12 intact, non-focal.
Psych: calm
L humerus fx:
-s/p ORIF
-Management as per Ortho
Other problems:
Right patellar fracture: Brace in place
Normocytic anemia: Fe panel unremarkable. Hb stable, outpt work up.
Minimally elevated transaminases
Essential Hypertension: cont ACEi
COPD
Chronic HFrEF: Cont Lasix/ACEi
Obesity due to excess calories: Encourage weight loss, affects all aspects of care.
DNR/SCDs
Anticipated Discharge: 24 - 48 hours
Subjective/Interval History
-
Date of Service: December 14, 2023
Patient seen in PACU immediately postop. Patient opens eyes to voice. Still recovering from effects of anesthesia.
Objective Data
-
Labs:
Laboratory Results
12/14/23
07:43
WBC 7.2
Hgb 10.7 L
Hct 32.6 L
Plt Count 307
Sodium 138
Potassium 5.0
Chloride 105
Carbon Dioxide 25
BUN 19 H
Creatinine 0.8
Glucose 103 H
Calcium 9.9
Vital Signs:
Vital Signs
Temp Pulse Resp BP Pulse Ox
97.7 F 107 20 124/62 95
12/14/23 07:00 12/14/23 08:27 12/14/23 08:27 12/14/23 07:00 12/14/23 08:27
I&O
12/13/23 12/14/23 12/15/23
06:59 06:59 06:59
Intake Total 480 / 480
Balance 480 / 480
--- NOTE | 2023-12-14 12:57 | PTCARENOTE ---
Patient received awake and alert. Left arm sling intact, pillow placed under left arm for elevation. Left hand warm , some edema noted. Right lower extremity with immobilizer intact. Out of bed to chair for short time. Npo with sips for meds
this am. In OR at present, family notified of patient leaving for OR.
--- NOTE | 2023-12-14 15:06 | CM ---
Patient off floor in OR at this time. CM will continue to follow for discharge planning needs.
Plan; will depend on patients medical needs.
--- NOTE | 2023-12-14 15:26 | W.PN.UPDATE ---
Update Note
Progress Note Update
78F s/p L humeral shaft ORIF w/ Dr. Mcdonough
-postop ancef q8x3
-NWB to LUE
-PT/OT while admitted
-pendulum of shoulders only; AROM of elbow, wrist and hand.
-ASA 81 BID for 30 days for DVT ppx unless recommended otherwise per primary
-likely ok for d/c tomorrow pending medical stability. Outpatient f/u 2 weeks
--- NOTE | 2023-12-14 16:47 | SUR.PHASEI ---
vss, in pacu, quiet initially and slow to respond. Dr Burnham visits, O2 continued for low sats, no pain, answers appropriately and follows commands. Daughter updated 2. updated with room # on discharge
--- NOTE | 2023-12-14 17:00 | PTCARENOTE ---
Patient received from PACU in bed; 4L NC; Patient drowsy, awakens to voice; Left upper extremity in sling with WINSTON wrap and gauze with tape, sling in place; Radial pulse +2; Hand edema +2; Shoulder edema +2; Local ecchymosis to left upper extremity;
Patient denies numbness and/or tingling; Right knee immobilizer in place; Daughter at bedside; Bed in lowest position, wheels locked; Call henry within reach
[2023-12-14] MEDS: LOW STRENGTH ASPIRIN 81 MG PO (21:06)
[2023-12-14] MEDS: ANCEF 5 IV (21:06)
[2023-12-14] MEDS: MELATONIN 5 MG PO ×2 (21:06→21:13)
[2023-12-14] MEDS: FLUSH (NSS) 1 FLUSH IV (21:07)
[2023-12-14] MEDS: MELATONIN PO (21:13)
[2023-12-15] VITALS (8 sets, daily range): BP systolic 103–154; BP diastolic 43–88; PULSE 75–78; O2SAT 97; BMI 32.3
[2023-12-15] MEDS: ANCEF 5 IV (03:43)
--- NOTE | 2023-12-15 07:39 | W.PN.ORTHO ---
Today's Communication / Plan
-
78F POD1 L humeral shaft ORIF w/ Dr. Mcdonough
-postop ancef q8x3
-Radial nerve function decreased on examination either secondary to nerve block or neuropraxia; patient did receive nerve block and reports sensation intact. Will continue to monitor
-NWB to LUE
-PT/OT while admitted
-pendulum of shoulders only; AROM of elbow, wrist and hand.
-ASA 81 BID for 30 days for DVT ppx unless recommended otherwise per primary
-likely ok for d/c tomorrow pending medical stability and return of wrist extension/radial nerve function. Outpatient f/u 2 weeks
Assessment
.
Distal Motor Intact: No
Dressing:
Clean, dry and intact.
Plan
.
Surgery / Date: 12/14/2023 L humerual shaft ORIF w/ Dr. Mcdonough
Activity:
Out of bed.
PT/OT
Subjective
.
.:
Patient resting comfortably.
Vital Signs and Labs
.
Vital Signs and Labs:
Temp Pulse Resp BP Pulse Ox
98.6 F 72 17 103/43 96
12/15/23 03:50 12/15/23 03:50 12/15/23 03:50 12/15/23 03:50 12/15/23 03:50
Physical Exam
-
Dressing intact to left upper extremity with no evidence of strikethrough. She reports sensation intact to the radial nerve dermatome however motor function decreased and unable to maintain wrist extension
[2023-12-15 07:46] LABS: Hematocrit 26.9 % (37.0-47.0); Mean Corp Hgb Conc. 33.5 g/dL (33.0-37.0); Mean Corpuscular Hgb 31.5 pg (27.0-31.0); Mean Corpuscular Volume 94.1 fL (81.0-99.0); Mean Platelet Volume 10.6 fL (7.4-10.4); Platelet Count 275 10^3/uL (130-400); Red Blood Cell Count 2.86 10^6/uL (4.20-5.40); Red Cell Dist. Width 14.6 % (11.5-14.5); White Blood Cell Count 8.1 10^3/uL (4.8-10.8)
[2023-12-15] MEDS: PULMICORT 0.5 MG INH ×2 (07:58→19:49)
[2023-12-15 08:15] LABS: Blood Urea Nitrogen 26 mg/dl (7-17); Calcium 9.1 mg/dl (8.4-10.2); Carbon Dioxide 25 mmol/L (22-30); Chloride 105 mmol/L (98-107); Estimated Creatinine Clearance 45 ml/min; Glucose 105 mg/dl (70-99); Potassium 4.7 mmol/L (3.5-5.1); Sodium 138 mmol/L (135-145); eGFR > 60.00
[2023-12-15] MEDS: LASIX 40 MG PO (08:32)
[2023-12-15] MEDS: LOW STRENGTH ASPIRIN 81 MG PO ×2 (08:32→20:49)
[2023-12-15] MEDS: ZESTRIL 5 MG PO (08:33)
[2023-12-15] MEDS: MIRALAX 17 GRAMS PO (08:33)
--- NOTE | 2023-12-15 10:17 | CM ---
Addendum entered by Fidelia Flores 12/15/23 10:42:
2 messages left for admissions at [facility] no answer.
Original Note:
client experience manager reviewed patient's chart and met with patient and patient was readmitted for surgery, patient was at [facility] and was sent for skilled placement to [facility] and came back for surgery and now needs skilled
placement again, per patient and daughter Liv plan is for patient to return to [facility], referral sent to [facility]. Patient has a prescription plan and uses [facility] pharmacy.
PCP: Dr. Lin
Patient lives alone in a 1 story home with 2 steps to enter, patient was independent with adl's and used a walker or cane with ambulation.
Plan; Patient to return to [facility] shelter facility.
--- NOTE | 2023-12-15 10:34 | W.PN.HOSP.TC ---
Today's Communication/Plan
-
see bold
Assessment / Plan
Assessment / Plan
Gen: NAD, well developed/nourished
Eyes: EOMI, PERRLA, no scleral icterus.
Neck: supple.
CV: remains RRR, +S1/S2, no m/r/g.
Resp: remains CTAB, no rales, wheezes, or rhonchi.
Abd: +BS, soft, NT, ND
Skin: No rashes.
Neuro: CN 2-12 intact, non-focal.
Psych: normal mood and affect
L humerus fx:
-s/p ORIF 12/14/23
-Management as per Ortho
Other problems:
Right patellar fracture: Brace in place
Normocytic anemia: Fe panel unremarkable. Hb drop likely acute blood loss anemia due to surgery, outpt work up.
Minimally elevated transaminases
Essential Hypertension: cont ACEi
COPD
Chronic HFrEF: Cont Lasix/ACEi
Obesity due to excess calories: Encourage weight loss, affects all aspects of care.
DNR/SCDs
Medically cleared for discharge. Case management aware.
Anticipated Discharge: Today
Subjective/Interval History
-
Date of Service: December 15, 2023
Denies CP/SOB.
Objective Data
-
Labs:
Laboratory Results
12/15/23
07:04
WBC 8.1
Hgb 9.0 L
Hct 26.9 L
Plt Count 275
Sodium 138
Potassium 4.7
Chloride 105
Carbon Dioxide 25
BUN 26 H
Creatinine 0.9
Glucose 105 H
Calcium 9.1
Vital Signs:
Vital Signs
Temp Pulse Resp BP Pulse Ox
97.7 F 82 14 111/50 98
12/15/23 07:39 12/15/23 08:00 12/15/23 08:00 12/15/23 07:39 12/15/23 08:00
I&O
12/14/23 12/15/23 12/16/23
06:59 06:59 06:59
Intake Total 480 / 480 650 / 650
Output Total 451 / 451
Balance 480 / 480 199 / 199
--- NOTE | 2023-12-15 11:30 | PN.CDI ---
CDI
- -
CDI:
Physician Documentation Request
Admit Date: 12/13/23 19:23
Dear Doctor Sharonda,
Please review the following and provide your response in the progress notes.
Clinical Indicators:
ED, 12/13
#Tobacco: Former smoker (Quit 2 days ago 30 cigarettes a day for 65 years)
H+P, 12/13
#Patient tripped over a vacuum cord on 12/04/2023.
#Patient was noted to have left humeral and right patella fracture.
#Patient was sent home, plan to proceed with OR on 12/13 for ORIF admission ...
#Home Meds:
#cholecalciferol (vitamin D3) [Vitamin D3]
#...25 mcg PO DAILY Supplement ##0 09/03/23
12/13 PROCEDURE:
#Open reduction internal fixation, left humeral shaft.
Please clarify the following regarding the etiology of the left humeral fracture and right patellar fracture:
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
Traumatic fracture only
Other(please specify)
Type Fracture
Age-related With current pathological fx
Drug induced (specify drug) without current pathological fx
Idiopathic
Osteoporosis of disuse
Due to post surgical malabsorption
Post traumatic
Use of terms such as suspected, likely, concern for, or probable (associated with a specific diagnosis that is being evaluated, monitored, or treated as if it exists) are acceptable and can be coded in the inpatient setting, when documented at the
time of discharge.
Thank you,
Annita Wylie RN BSN CCDS
CDI Specialist
please contact via tiger text
Please use your independent medical judgment in providing your response.
[2023-12-15] MEDS: ROXICODONE 5 MG PO ×2 (13:07→20:49)
[2023-12-15] MEDS: DUONEB 3 ML INH (19:49)
[2023-12-15] MEDS: MELATONIN 5 MG PO ×2 (20:49)
[2023-12-16 05:46] VITALS: BMI 31.2
[2023-12-16 06:00] VITALS: BMI 31.2
[2023-12-16 06:40] LABS: Hemoglobin 9.1 g/dL (12.0-16.0); Mean Corp Hgb Conc. 32.5 g/dL (33.0-37.0); Mean Corpuscular Hgb 30.4 pg (27.0-31.0); Mean Corpuscular Volume 93.6 fL (81.0-99.0); Mean Platelet Volume 10.5 fL (7.4-10.4); Platelet Count 291 10^3/uL (130-400); Red Blood Cell Count 2.99 10^6/uL (4.20-5.40); Red Cell Dist. Width 14.6 % (11.5-14.5); White Blood Cell Count 8.6 10^3/uL (4.8-10.8)
[2023-12-16 06:50] LABS: Blood Urea Nitrogen 24 mg/dl (7-17); Calcium 9.8 mg/dl (8.4-10.2); Carbon Dioxide 26 mmol/L (22-30); Chloride 105 mmol/L (98-107); Estimated Creatinine Clearance 49 ml/min; Glucose 92 mg/dl (70-99); Potassium 4.4 mmol/L (3.5-5.1); Sodium 138 mmol/L (135-145); eGFR > 60.00
[2023-12-16] MEDS: PULMICORT 0.5 MG INH (07:24)
[2023-12-16] MEDS: DUONEB 3 ML INH (07:25)
--- NOTE | 2023-12-16 07:30 | W.PN.ORTHO ---
Today's Communication / Plan
-
Sling with nonweightbearing left upper extremity
PT/OT
Radial nerve dysfunction-follow for now
Ice and pain medication as needed
Follow-up with orthopedics in 2 weeks for skin clip removal
Discharge once medically stable
Assessment
.
Distal Motor Intact: No
Dressing:
Clean, dry and intact.
Plan
.
Surgery / Date: 12/14/2023 L humerual shaft ORIF w/ Dr. Mcdonough
DVT Prophylaxis: Aspirin
Activity:
Out of bed.
PT/OT
Discharge Plan: Home w/ VN
Subjective
.
.:
Patient resting comfortably.
Vital Signs and Labs
.
Vital Signs and Labs:
Lab Results
12/16/23 05:56
12/16/23 05:56
Temp Pulse Resp BP Pulse Ox
98.2 F 82 14 131/56 95
12/15/23 23:25 12/16/23 07:26 12/16/23 07:26 12/15/23 23:25 12/15/23 23:25
Physical Exam
-
Left upper extremity in sling with [place] wrap in place and upper arm. Edema noted within the hand and fingers. She is unable to extend at the wrist. She is unable to extend at the MCP joint she is able to flex and extend fingers slightly distally.
She is unable to abduct thumb. Sensation intact, hand warm to touch and pulses palpable.
[2023-12-16 08:00] VITALS: BP 142/72
[2023-12-16] MEDS: MIRALAX 17 GRAMS PO (08:47)
[2023-12-16] MEDS: LOW STRENGTH ASPIRIN 81 MG PO (08:47)
[2023-12-16] MEDS: LASIX 40 MG PO (08:50)
[2023-12-16] MEDS: ZESTRIL 5 MG PO (08:50)
[2023-12-16] MEDS: ROXICODONE 5 MG PO (09:06)
--- NOTE | 2023-12-16 09:58 | CM ---
Addendum entered by Sara Yu 12/16/23 11:23:
Met with patient at bedside; IMM benefit explained; form signed @ [id number]
Per nurse, patient's O2 Saturation is 87-89 on Room Air.
Patient placed on O2
Attending notified and responded to text
Addendum entered by Sara Yu 12/16/23 10:55:
Daughter, Liv, notified of ambulance medicinal plant picker time via phone
Addendum entered by Sara Yu 12/16/23 10:52:
Ambulance medicinal plant picker scheduled for 1430
Addendum entered by Sara Yu 12/16/23 10:34:
Transportation: patient immobilized in a sling Left Upper Extremity; unable to lift self out of wheelchair
Ambulance transport to facility requested
Addendum entered by Sara Yu 12/16/23 10:24:
Plan: per Jody @ [facility] she can accept patient today after 2:00 PM today
Report: [phone]

Original Note:
Plan: return to [facility]; chart reviewed; patient is medically stable
Left a voice mail for Jody [place] to call case management.
--- NOTE | 2023-12-16 10:05 | W.PN.HOSP.TC ---
Today's Communication/Plan
-
d/c
Assessment / Plan
Assessment / Plan
Gen: NAD, well developed/nourished
Eyes: EOMI, PERRLA, no scleral icterus.
Neck: supple.
CV: continues to remain RRR, +S1/S2, no m/r/g.
Resp: continues to remain CTAB, no rales, wheezes, or rhonchi.
Abd: +BS, soft, NT, ND
Skin: No rashes.
Neuro: CN 2-12 intact, non-focal.
Psych: remains normal mood and affect
L humerus fx:
-s/p ORIF 12/14/23
-Management as per Ortho
Other problems:
Right patellar fracture: Brace in place
Normocytic anemia: Fe panel unremarkable. Hb drop likely acute blood loss anemia due to surgery, outpt work up.
Minimally elevated transaminases
Essential Hypertension: cont ACEi
COPD
Chronic HFrEF: Cont Lasix/ACEi
Obesity due to excess calories: Encourage weight loss, affects all aspects of care.
DNR/SCDs
Total time spent on d/c = 31 min. This included today's physical exam, progress note, review of laboratory and diagnostic data, preparation of discharge documents and prescriptions, and discussions about the pt's hospital course and discharge plan
with the patient and other medical staff services coordinator involved in the patient's care.
Anticipated Discharge: Today
Subjective/Interval History
-
Date of Service: December 16, 2023
No new complaints.
Objective Data
-
Labs:
Laboratory Results
12/16/23
05:56
WBC 8.6
Hgb 9.1 L
Hct 28.0 L
Plt Count 291
Sodium 138
Potassium 4.4
Chloride 105
Carbon Dioxide 26
BUN 24 H
Creatinine 0.8
Glucose 92
Calcium 9.8
Vital Signs:
Vital Signs
Temp Pulse Resp BP Pulse Ox
97.9 F 113 17 134/59 95
12/16/23 08:00 12/16/23 08:50 12/16/23 08:00 12/16/23 08:50 12/16/23 09:05
I&O
12/15/23 12/16/23 12/17/23
06:59 06:59 06:59
Intake Total 650 / 650 720 / 720 420 / 420
Output Total 451 / 451
Balance 199 / 199 720 / 720 420 / 420
--- NOTE | 2023-12-16 13:29 | W.DCSUMMARY ---
Discharge Summary
Discharge Data
Date of Admission: 12/13/23
Date of Discharge: 12/16/23
-
Pending Results: No
Hospital Course
Primary diagnoses:
Left humerus fracture status post open reduction and internal fixation on 12/14/23
Acute blood loss anemia due to surgery
Secondary diagnoses:
Right patellar fracture
Normocytic anemia
Minimally elevated transaminases
Essential Hypertension
Chronic obstructive pulmonary disease
Chronic heart failure with reduced ejection
Obesity due to excess calories
Consultants:
Orthopedics
Cardiology
Imaging:
L humerus Xray: Repair of left humeral fracture as described above.
Hospital course: 70-year-old female who presented with a known left humerus fracture requiring admission for surgical repair is on H&P done admission. Patient underwent open reduction and internal fixation on 12/14/23. She tolerated the procedure
well. She was discharged in medically stable condition
Discharge Plan
-
Patient Disposition: Usp/SNF
Discharge Diagnosis/Procedures: Left humerus fracture status post open reduction and internal fixation on 12/14/23
Condition: Good
Diet: No restrictions
Activity: With assistance
Driving Restrictions: No driving
Bathing Restrictions: None
Referrals:
Brandie Merchant CRNP [Specified Professional Personl] - 01/11/24 8:00 am
Justyn Lin DO [Family Provider] - in less than 1 week
Prescriptions:
New
sennosides-docusate sodium [Stool Softener-Stimulant Laxat] 8.6-50 mg Tablet
1 tab PO BIDPRN PRN (Reason: constipation) Qty: 0 0RF
aspirin 325 mg capsule
325 mg PO DAILY Qty: 1 0RF
acetaminophen [Tylenol 8 Hour] 650 mg tablet extended release
650 mg PO Q8H PRN (Reason: mild/mod pain) Qty: 1 0RF
Continued
cyanocobalamin (vitamin B-12) [Vitamin B-12] 1,000 mcg Tablet
1,000 mcg PO DAILY Qty: 0
albuterol sulfate 90 mcg/actuation Hfa Aerosol Inhaler
2 puff INHALATION R Q4HPRN PRN (Reason: SOB)
cholecalciferol (vitamin D3) [Vitamin D3] 25 mcg (1,000 unit) Tablet
25 mcg PO DAILY Qty: 0
lisinopril 5 mg tablet
5 mg PO DAILY
budesonide 0.5 mg/2 mL Suspension For Nebulization
0.5 mg inhalation R BID 30 Days Qty: 120 0RF
magnesium hydroxide [Milk of Magnesia] 400 mg/5 mL Suspension
30 ml PO DAILYPRN PRN (Reason: CONSTIPATION)
Patient Comments:
12/13/2023, on 7-3 shift per bowel protocol.
benzonatate 100 mg Capsule
100 mg PO Q8H PRN (Reason: COUGH)
bisacodyl [Dulcolax (bisacodyl)] 10 mg Suppository
10 mg FL DAILYPRN PRN (Reason: CONSTIPATION)
Patient Comments:
12/13/2023, on 3-11 shift per bowel protocol.
polyethylene glycol 3350 17 gram/dose Powder
17 g PO DAILY
melatonin 5 mg Tablet
5 mg PO HS
melatonin 5 mg Tablet
5 mg PO DAILYPRN PRN (Reason: d20muqr if routine melatonin ineffective)
furosemide [Lasix] 40 mg tablet
40 mg PO DAILY
Rx Instructions:
12/13/2023, end date: 12/13/2023.
ipratropium-albuterol 0.5 mg-3 mg(2.5 mg base)/3 mL solution for nebulization
3 ml inhalation R Q8HPRN PRN (Reason: shortness of breath or wheezing)
acetaminophen [Tylenol Extra Strength] 500 mg tablet
1,000 mg PO TID MDD 3000 mg
methocarbamol 500 mg Tablet
1,000 mg PO Q8H PRN (Reason: pain/muscle spasm)
Enema 19-7 gram/118 mL Enema
118 ml FL DAILYPRN PRN (Reason: constipation)
Patient Comments:
12/13/2023, on 11-7 shift per bowel protocol.
chlorhexidine gluconate [Hibiclens] 4 % Liquid
1 applic TOPICAL DIRECTED
Rx Instructions:
12/13/2023, apply to neck down topically every evenig shift for pre surgical until 12/13/2023 and apply to neck down in the morning for pre surgery until 12/14/2023.
Discontinued
oxycodone 5 mg Tablet
5 mg PO Q4HPRN PRN (Reason: moderate pain) Qty: 15 0RF
oxycodone 5 mg Tablet
5 mg PO BID
Patient Comments:
12/13/2023, keep 4 hrs between doses.
enoxaparin [Lovenox] 40 mg/0.4 mL syringe
40 mg SC DAILY
Rx Instructions:
12/13/2023, continue until surgery.
Discharge Orders:
Discharge Patient (As Directed); Ordered 12/16/23
Ordered By: Kane Burnham
Discharge Date and Time
Print Language: TELUGU
[2023-12-16 14:04] VITALS: BP 128/69
== END 2023-12-16 16:18 | DRG 493 ==
LOC: 2 SOUTH 19:23
PROVIDERS: Emergency Medicine; Orthopaedic Surgery Hand Surgery; Registered Nurse; ADMITTING PHYSICIAN Internal Medicine; CONSULT PHYSICIAN Internal Medicine Cardiovascular Disease; EMERGENCY PHYSICIAN Emergency Medicine; FAMILY PHYSICIAN Family Medicine
PROC: 0PSD04Z Reposition Left Humeral Head with Internal Fixation Device, Open Approach (ICD-10-PCS; 2023-12-14)
DX: S42.302A Unspecified fracture of shaft of humerus, left arm, initial encounter for closed fracture (principal); D62 Acute posthemorrhagic anemia; S82.001A Unspecified fracture of right patella, initial encounter for closed fracture; I50.22 Chronic systolic (congestive) heart failure; X58.XXXA Exposure to other specified factors, initial encounter; R74.01 Elevation of levels of liver transaminase levels; I11.0 Hypertensive heart disease with heart failure; E66.09 Other obesity due to excess calories; E78.5 Hyperlipidemia, unspecified; J45.998 Other asthma; Z68.31 Body mass index [BMI] 31.0-31.9, adult
CPT/HCPCS: 73060; 76000; 80048; 80053; 80061; 82607; 82728; 82746; 83540; 83550; 85025; 85027; 86850; 86900; 86901; 93005; 94640; 97110; 97116; 97163; 97167; 97530; 97535; 99285; 99406